=== PATIENT | male | born 1930 | race Caucasian/White ===

== ENCOUNTER 2016-10-23 05:58 | Day surgery (SDC) | payer MEDICARE ==
[2016-10-23] MEDS ORDERED: SODIUM CHLORIDE 0.9% 1,000 ML IV SCH ×2 (06:00→07:15)
[2016-10-23] MEDS ORDERED: LACTATED RINGERS 1,000 ML IV SCH (06:04)
[2016-10-23 06:53] LABS: INR 2.5 (<1.1); Prothrombin Time 23.7 sec (9.0-12.0)
[2016-10-23 06:54] LABS: Calcium 9.1 mg/dL (8.4-10.2); Potassium 4.1 mmol/L (3.5-5.1); Total Protein 6.8 g/dL (6.3-8.2)
[2016-10-23] MEDS ORDERED: PROPOFOL 10 MG/ML 20 ML VIAL IV ONE (06:55)
[2016-10-23] MEDS ORDERED: LIDOCAINE 1% INJ 10MG/ML (20 ML MDV) ONE (06:55)
[2016-10-23] MEDS ORDERED: NITROGLYCERIN SL TABS 0.4 MG TAB SUBLINGUAL ONE (07:02)
[2016-10-23 07:37] VITALS: RESP 16
[2016-10-23 08:25] VITALS: TEMP 98
[2016-10-23 08:45] VITALS: PULSE 54
[2016-10-23 08:48] VITALS: BP 156/87
--- NOTE | 2016-10-23 08:53 | CE ---
DATE OF SERVICE: 10/23/2016 PROCEDURE: Electrical cardioversion. PERFORMED BY: Dr. Lito Rangel. CLINICAL INFORMATION: Mr. He Barajas is an 85-year-old gentleman with a persistent atrial fibrillation, CAD, previous multivessel PCI. He went into atrial fibrillation a couple of weeks ago. Has been anticoagulated for a long time. Rate control was optimized. He was given amiodarone, which he had difficulty tolerating. However, he did take amiodarone up until a week ago and another dose of 400 mg yesterday. PT, INR was 2.7 yesterday. He was brought in for electrical cardioversion electively. PROCEDURE NOTE: Under the influence of ultra short-acting intravenous anesthetic agent with the attendance of the anesthesiologist Dr. Puente, two shocks were delivered to the chest with anterior and posterior patches. First was a 200 joule shock and patient remained in atrial fibrillation with controlled rate, and a second shock was 250 joules. He converted to sinus rhythm, remained hemodynamically stable and neurologically intact. This was a successful electrical cardioversion. EKG was reviewed and unremarkable. Blood pressure was 123/80. He was hypertensive when he came in. He will be discharged home without amiodarone on metoprolol 50 mg b.i.d., Coumadin 2.5 mg daily, amlodipine 5 mg daily, losartan 150 mg daily, atorvastatin 20 mg daily and I will see him in the office on 10/31/16. I discussed the details with the patient and his and daughter. He will be discharged once he is up and ambulatory.
== END 2016-10-23 09:10 | disposition home or self-care (01) ==
LOC: CATHCVL 05:58
PROVIDERS: ATTEND Internal Medicine Interventional Cardiology
DX: I48.1 Persistent atrial fibrillation (principal); I25.10 Atherosclerotic heart disease of native coronary artery without angina pectoris; Z95.5 Presence of coronary angioplasty implant and graft; I10 Essential (primary) hypertension; E78.5 Hyperlipidemia, unspecified; E78.00 Pure hypercholesterolemia, unspecified; Z86.711 Personal history of pulmonary embolism; Z79.01 Long term (current) use of anticoagulants; Z79.82 Long term (current) use of aspirin; Z79.899 Other long term (current) drug therapy; Z87.891 Personal history of nicotine dependence
CPT/HCPCS: 93005; 92960; 80053; 85610; J2001; J2704

== ENCOUNTER 2016-11-28 11:34 | Emergency (ER) | payer MEDICARE ==
--- NOTE | 2016-11-28 11:49 | ED ---
General Adult HPI - General Chief complaint: Fall Stated complaint: Fall/Head Injury Time Seen by Provider: 11/28/16 11:41 Source: patient, RN notes reviewed Mode of arrival: EMS Limitations: no limitations - History of Present Illness Initial comments: Patient is a pleasant 86-year-old male presenting to the emergency department following head injury. Incident occurred just prior to arrival. Patient was getting out of his car when he fell. Patient has a bad knee and intrusive fall to that. No loss of consciousness. Patient only has mild discomfort left forehead where he sustained a cut. No neck or back pain. No chest pain or dyspnea. No abdominal pain. No extremity injury. Patient is ambulatory. Patient does take Coumadin for history of atrial fibrillation. - Related Data Home Medications Medication Instructions Recorded Confirmed Atorvastatin [Lipitor] 20 mg PO DAILY 11/10/15 11/28/16 Losartan [Cozaar] 150 mg PO DAILY 11/10/15 11/28/16 Aspirin 81 mg PO DAILY 12/21/15 11/28/16 Metoprolol Tartrate [Lopressor] 50 mg PO BID 12/21/15 11/28/16 Warfarin [Coumadin] 2.5 mg PO HS 10/15/16 11/28/16 amLODIPine BESYLATE [Norvasc] 5 mg PO DAILY 10/23/16 11/28/16 Previous Rx's Medication Instructions Recorded Cephalexin [Keflex] 500 mg PO Q8HR #21 cap 11/28/16 Allergies Allergy/AdvReac Type Severity Reaction Status Date / Time No Known Allergies Allergy Verified 11/28/16 12:10 Review of Systems ROS Statement: Those systems with pertinent positive or pertinent negative responses have been documented in the HPI. ROS Other: All systems not noted in ROS Statement are negative. Constitutional: Denies: fever Eyes: Denies: eye pain ENT: Denies: ear pain Respiratory: Denies: cough Cardiovascular: Denies: chest pain Endocrine: Denies: fatigue Gastrointestinal: Denies: abdominal pain Genitourinary: Denies: dysuria Musculoskeletal: Denies: back pain Skin: Denies: rash Neurological: Reports: headache (Mild). Denies: weakness, numbness, paresthesias, confusion, abnormal gait Past Medical History Past Medical History: Atrial Fibrillation, Coronary Artery Disease (CAD), Hyperlipidemia, Hypertension, Pulmonary Embolus (PE) Additional Past Medical History / Comment(s): 2011 PE, diverticulosis History of Any Multi-Drug Resistant Organisms: None Reported Past Surgical History: Heart Catheterization With Stent, Hernia Repair, Tonsillectomy Additional Past Surgical History / Comment(s): colonoscopy, cardioversion Past Anesthesia/Blood Transfusion Reactions: No Reported Reaction Additional Past Anesthesia/Blood Transfusion Reaction / Comment(s): Pt states he has never received blood Date of Last Stent Placement:: 03/06/12 Past Psychological History: No Psychological Hx Reported Additional Psychological History / Comment(s): Pt states he resides with his . He is independent. He uses no assistive device. He drives a car. No home care use. Smoking Status: Former smoker Past Alcohol Use History: None Reported Additional Past Alcohol Use History / Comment(s): STARTED SMOKING AT AGE 19 QUIT AGE 28 Past Drug Use History: None Reported - Past Family History Mother Family Medical History: No Reported History Additional Family Medical History / Comment(s): Mother had pulmonary fibrosis. She at age 88yrs. Father Family Medical History: Myocardial Infarction ([place]) Additional Family Medical History / Comment(s): Father of a NE in his 60's General Exam Limitations: no limitations General appearance: alert, in no apparent distress Head exam: Present: other (Left frontal laceration) Eye exam: Present: normal appearance, PERRL, EOMI. Absent: nystagmus ENT exam: Present: normal oropharynx Neck exam: Present: normal inspection, full ROM. Absent: tenderness Respiratory exam: Present: normal lung sounds bilaterally Cardiovascular Exam: Present: regular rate, normal rhythm GI/Abdominal exam: Present: soft. Absent: tenderness Extremities exam: Present: normal inspection, full ROM. Absent: tenderness Back exam: Present: normal inspection. Absent: vertebral tenderness Neurological exam: Present: alert, CN II-XII intact. Absent: motor sensory deficit Expanded Cranial nerves: EOM's Intact: Normal Motor strength exam: RUE: 5, LUE: 5, RLE: 5, LLE: 5 Eye Response: (4) open spontaneously Motor Response: (6) obeys commands Verbal Response: (5) oriented Psychiatric exam: Present: normal affect, normal mood Skin exam: Absent: rash Course Vital Signs 11/28/16 11:41 Temperature 96.9 F L Pulse Rate 63 Respiratory 16 Rate Blood Pressure 171/94 O2 Sat by Pulse 96 Oximetry Procedures - Laceration Laceration #1 Consent Obtained: verbal consent Time Out Performed: Yes Indication: laceration Site: face Size (cm): 9 Description: stellate Depth: simple, single layer Anesthetic Used: lidocaine 1% Anesthesia Technique: local infiltration Pre-repair: wound explored, irrigated extensively, foreign body removed ( Minimal debris) Type of Sutures: nylon Size of Sutures: 4-0 Number of Sutures: 12 Technique: simple, interrupted Patient Tolerated Procedure: well, no complications Medical Decision Making - Medical Decision Making Son requested knee x-ray however patient refuses this multiple times. states no discomfort at this time. No tenderness on exam. - Radiology Data Radiology results: image reviewed (Computed tomography scan the brain shows no acute process. Possible debris in the wound.) Disposition Clinical Impression: Fall, Forehead laceration, Head injury Disposition: HOME SELF-CARE Condition: Stable Instructions: Fall Prevention for Older Adults (ED), Head Injury (ED), Facial Laceration (ED) Additional Instructions: Twice daily wash wound with soap and water and apply antibiotic ointment, keep bandage.Please return to the emergency room in 7-8 days to have sutures removed. Please watch for any signs of infection which may include increased pain, swelling, redness, fever or chills. Please return to emergency room for any signs of infection do occur. Please use clean soap and water over the area to prevent scabbing over your stitches. Please leave wound covered for the first 24-48 hours and then leave wound open to air. Please return to the emergency room for any other concerns. Return for confusion, weakness, visual changes, redness or swelling, worsening symptoms or other concerns. Prescriptions: Cephalexin [Keflex] 500 mg PO Q8HR #21 cap Referrals: Titi Nix III, MD [Primary Care Provider] - 1-2 days
--- NOTE | 2016-11-28 12:13 | CT ---
EXAMINATION TYPE: CT brain wo con DATE OF EXAM: 11/28/2016 12:07 PM COMPARISON: NONE INDICATION: fall DLP: 1076.7 mGycm, Automated exposure control for dose reduction was used. CONTRAST: None CT of the brain is performed utilizing 3 mm thick sections through the posterior fossa and 3 mm thick sections through the remaining calvarium. Study is performed within 24 hours of arrival to the hosp [facility]. No abnormal hyperdensity is present to suggest an acute intracranial hemorrhage. No mass lesion is evident. No acute infarcts are evident. Mild periventricular white matter hypodensity is present may be some m ild microvascular ischemic change. Ventricles and sulci are prominent for the patient age. There is prominence of the extra-axial space s. Mild left subdural hygroma may be present. Paranasal sinuses and mastoid air cells within the [id number] are clear. There is soft tissue swelling over the left frontal region. There are couple of superficial hyperdens ities present could be tiny foreign bodies at the skin surface. Laceration is evident on the bone win dows. IMPRESSIONS: 1. Atrophy with periventricular white matter ischemic changes. 2. No acute intracranial process. 3. Soft tissue swelling left frontal region. Punctate foreign bodies may be at the skin surface.
[2016-11-28 13:43] VITALS: BP 144/79; PULSE 64; RESP 18; TEMP 96.8
== END 2016-11-28 13:54 | disposition home or self-care (01) ==
LOC: EC 11:34
DX: S01.81XA Laceration without foreign body of other part of head, initial encounter (principal); W01.10XA Fall on same level from slipping, tripping and stumbling with subsequent striking against unspecified object, initial encounter; Y92.009 Unspecified place in unspecified non-institutional (private) residence as the place of occurrence of the external cause; I48.91 Unspecified atrial fibrillation; I25.10 Atherosclerotic heart disease of native coronary artery without angina pectoris; E78.5 Hyperlipidemia, unspecified; I10 Essential (primary) hypertension; Z86.711 Personal history of pulmonary embolism; Z87.891 Personal history of nicotine dependence; Z79.82 Long term (current) use of aspirin; Z79.01 Long term (current) use of anticoagulants; Z79.899 Other long term (current) drug therapy
CPT/HCPCS: 12015; 70450; 99284

== ENCOUNTER 2019-07-23 10:53 | Inpatient (IN) | payer MEDICARE ==
--- NOTE | 2019-07-23 11:31 | ED ---
General Adult HPI - General Chief complaint: Weakness Stated complaint: Fell a week ago/leg pain Time Seen by Provider: 07/23/19 11:05 Source: patient, RN notes reviewed, old records reviewed Mode of arrival: wheelchair Limitations: physical limitation - History of Present Illness Initial comments: 88-year-old male presented for evaluation of bilateral lower extremity weakness status post fall. Patient fell one week ago. He was evaluated at urgent care and had x-rays at that time which according to the patient were negative for any acute bony abnormality. He's had progressive weakness and difficulty standing since the time of the fall. Denies numbness or tingling in the legs. He does have some lumbosacral pain although this is improving. Denies fever or chills. Denies any urinary retention or urinary incontinence, no bowel incontinence. Denies abdominal pain chest pain or cough. Patient is currently on Coumadin with history of DVT PE. - Related Data Home Medications Medication Instructions Recorded Confirmed Atorvastatin [Lipitor] 20 mg PO DAILY 11/10/15 07/23/19 Metoprolol Tartrate [Lopressor] 50 mg PO BID 12/21/15 07/23/19 ALPRAZolam [Xanax] 0.25 - 0.5 mg PO DAILY PRN 07/23/19 07/23/19 Amiodarone [Cordarone] 200 mg PO DAILY 07/23/19 07/23/19 Furosemide [Lasix] 20 mg PO DAILY 07/23/19 07/23/19 Hydrochlorothiazide [Hydrodiuril] 25 mg PO DAILY 07/23/19 07/23/19 Potassium Chloride ER [K-Dur 20] 20 meq PO DAILY 07/23/19 07/23/19 Valsartan [Diovan] 160 mg PO BID 07/23/19 07/23/19 Warfarin Sodium [Jantoven] 1.25 mg PO HS 07/23/19 07/23/19 cloNIDine HCL 0.3 mg PO BID 07/23/19 07/23/19 Allergies Allergy/AdvReac Type Severity Reaction Status Date / Time No Known Allergies Allergy Verified 07/23/19 11:54 Review of Systems ROS Statement: Those systems with pertinent positive or pertinent negative responses have been documented in the HPI. ROS Other: All systems not noted in ROS Statement are negative. Past Medical History Past Medical History: Atrial Fibrillation, Coronary Artery Disease (CAD), Hyperlipidemia, Hypertension, Pulmonary Embolus (PE) Additional Past Medical History / Comment(s): 2011 PE, diverticulosis History of Any Multi-Drug Resistant Organisms: None Reported Past Surgical History: Heart Catheterization With Stent, Hernia Repair, Tonsillectomy Additional Past Surgical History / Comment(s): colonoscopy, cardioversion Past Anesthesia/Blood Transfusion Reactions: No Reported Reaction Additional Past Anesthesia/Blood Transfusion Reaction / Comment(s): Pt states he has never received blood Date of Last Stent Placement:: 03/06/12 Past Psychological History: No Psychological Hx Reported Smoking Status: Former smoker Past Alcohol Use History: None Reported Past Drug Use History: None Reported - Past Family History Mother Family Medical History: No Reported History Additional Family Medical History / Comment(s): Mother had pulmonary fibrosis. She at age 88yrs. Father Family Medical History: Myocardial Infarction ([place]) Additional Family Medical History / Comment(s): Father of a MS in his 60's General Exam Limitations: physical limitation General appearance: alert, in no apparent distress Head exam: Present: atraumatic, normocephalic Eye exam: Present: normal appearance, PERRL ENT exam: Present: normal exam Neck exam: Present: normal inspection. Absent: tenderness, meningismus Respiratory exam: Present: normal lung sounds bilaterally. Absent: respiratory distress, wheezes Cardiovascular Exam: Present: regular rate, normal rhythm GI/Abdominal exam: Present: soft. Absent: distended, tenderness, guarding, rebound Extremities exam: Present: normal inspection. Absent: pedal edema, joint swell ing, calf tenderness Back exam: Present: normal inspection, full ROM. Absent: muscle spasm, paraspinal tenderness, vertebral tenderness Neurological exam: Present: alert, oriented X3, CN II-XII intact, other (5 out of 5 strength in bilateral lower extremities, no sensory deficit, patient is not hyperreflexic) Skin exam: Present: warm, dry, intact. Absent: cyanosis, diaphoretic Course Vital Signs 07/23/19 11:01 Temperature 97.7 F Pulse Rate 58 L Respiratory 19 Rate Blood Pressure 145/77 O2 Sat by Pulse 96 Oximetry Medical Decision Making - Medical Decision Making 88-year-old male presented for evaluation of low back pain status post fall and weakness in his legs. Patient is on Coumadin, is concern for epidural abscess versus fracture dislocation, workup is initiated emergency department including laboratory testing and CT. Patient has normal white blood cell count, stable hemoglobin which is improved from previous at 12.9 from 11.1. His INR is subtherapeutic at 1.6. He has normal electrolytes. CT is performed which shows a L3, L4, L5 compression deformities.. Case is discussed with orthopedics, physician producer assistant Silvia sherman. Orthopedics does recommend admission to internal medicine with orthopedics on consult. Patient will be admitted for orthopedic evaluation and physical therapy with gait training. - Lab Data Result diagrams: 07/23/19 11:20 07/23/19 11:20 Lab Results 07/23/19 07/23/19 07/23/19 Range/Units 11:20 11:20 11:20 WBC 6.4 (3.8-10.6) k/uL RBC 4.15 L (4.30-5.90) m/uL Hgb 12.9 L (13.0-17.5) gm/dL Hct 38.4 L (39.0-53.0) % MCV 92.5 (80.0-100.0) fL MCH 31.1 (25.0-35.0) pg MCHC 33.6 (31.0-37.0) g/dL RDW 13.2 (11.5-15.5) % Plt Count 227 (150-450) k/uL Neutrophils % 76 % Lymphocytes % 13 % Monocytes % 6 % Eosinophils % 3 % Basophils % 1 % Neutrophils # 4.8 (1.3-7.7) k/uL Lymphocytes # 0.9 L (1.0-4.8) k/uL Monocytes # 0.4 (0-1.0) k/uL Eosinophils # 0.2 (0-0.7) k/uL Basophils # 0.0 (0-0.2) k/uL PT 15.7 H (9.0-12.0) sec INR 1.6 H (<1.2) APTT 27.7 (22.0-30.0) sec Sodium 140 (137-145) mmol/L Potassium 3.7 (3.5-5.1) mmol/L Chloride 104 (98-107) mmol/L Carbon Dioxide 29 (22-30) mmol/L Anion Gap 7 mmol/L BUN 28 H (9-20) mg/dL Creatinine 1.20 (0.66-1.25) mg/dL Est GFR (CKD-EPI)AfAm 63 (>60 ml/min/1.73 sqM) Est GFR (CKD-EPI)NonAf 55 (>60 ml/min/1.73 sqM) Glucose 102 H (74-99) mg/dL Calcium 9.2 (8.4-10.2) mg/dL Total Bilirubin 0.6 (0.2-1.3) mg/dL AST 28 (17-59) U/L ALT 26 (21-72) U/L Alkaline Phosphatase 65 (38-126) U/L Total Protein 6.4 (6.3-8.2) g/dL Albumin 3.6 (3.5-5.0) g/dL Urine Color Urine Appearance (Clear) Urine pH (5.0-8.0) Ur Specific [place] (1.001-1.035) Urine Protein (Negative) Urine Glucose (UA) (Negative) Urine Ketones (Negative) Urine Blood (Negative) Urine Nitrite (Negative) Urine Bilirubin (Negative) Urine Urobilinogen (<2.0) mg/dL Ur Leukocyte Esterase (Negative) Urine RBC (0-5) /hpf Urine WBC (0-5) /hpf Ur Squamous Epith Cells (0-4) /hpf Hyaline Casts (0-2) /lpf Urine Mucus (None) /hpf 07/23/19 Range/Units 12:10 WBC (3.8-10.6) k/uL RBC (4.30-5.90) m/uL Hgb (13.0-17.5) gm/dL Hct (39.0-53.0) % MCV (80.0-100.0) fL MCH (25.0-35.0) pg MCHC (31.0-37.0) g/dL RDW (11.5-15.5) % Plt Count (150-450) k/uL Neutrophils % % Lymphocytes % % Monocytes % % Eosinophils % % Basophils % % Neutrophils # (1.3-7.7) k/uL Lymphocytes # (1.0-4.8) k/uL Monocytes # (0-1.0) k/uL Eosinophils # (0-0.7) k/uL Basophils # (0-0.2) k/uL PT (9.0-12.0) sec INR (<1.2) APTT (22.0-30.0) sec Sodium (137-145) mmol/L Potassium (3.5-5.1) mmol/L Chloride (98-107) mmol/L Carbon Dioxide (22-30) mmol/L Anion Gap mmol/L BUN (9-20) mg/dL Creatinine (0.66-1.25) mg/dL Est GFR (CKD-EPI)AfAm (>60 ml/min/1.73 sqM) Est GFR (CKD-EPI)NonAf (>60 ml/min/1.73 sqM) Glucose (74-99) mg/dL Calcium (8.4-10.2) mg/dL Total Bilirubin (0.2-1.3) mg/dL AST (17-59) U/L ALT (21-72) U/L Alkaline Phosphatase (38-126) U/L Total Protein (6.3-8.2) g/dL Albumin (3.5-5.0) g/dL Urine Color Yellow Urine Appearance Clear (Clear) Urine pH 5.5 (5.0-8.0) Ur Specific [place] 1.013 (1.001-1.035) Urine Protein Negative (Negative) Urine Glucose (UA) Negative (Negative) Urine Ketones Negative (Negative) Urine Blood Negative (Negative) Urine Nitrite Negative (Negative) Urine Bilirubin Negative (Negative) Urine Urobilinogen <2.0 (<2.0) mg/dL Ur Leukocyte Esterase Trace H (Negative) Urine RBC <1 (0-5) /hpf Urine WBC 1 (0-5) /hpf Ur Squamous Epith Cells <1 (0-4) /hpf Hyaline Casts 25 H (0-2) /lpf Urine Mucus Rare H (None) /hpf Disposition Clinical Impression: Lumbar compression fracture, Gait instability Disposition: ADMITTED IP TO THIS [facility] Condition: Stable Is patient prescribed a controlled substance at d/c from ED?: No Referrals: Titi Nix III, MD [Primary Care Provider] - 1-2 days Decision to Admit Reason: Admit from EC Decision Date: 07/23/19 Decision Time: 13:36
[2019-07-23 11:38] LABS: Basophils % (A) 1 %; Eosinophils # (A) 0.2 k/uL (0-0.7); Eosinophils % (A) 3 %; HCT 38.4 % (39.0-53.0); HGB 12.9 gm/dL (13.0-17.5); Lymphocytes # (A) 0.9 k/uL (1.0-4.8); Lymphocytes % (A) 13 %; MCH 31.1 pg (25.0-35.0); MCHC 33.6 g/dL (31.0-37.0); MCV 92.5 fL (80.0-100.0); Mean Platelet Volume 7.7; Monocytes # (A) 0.4 k/uL (0-1.0); Monocytes % (A) 6 %; Neutrophils # (A) 4.8 k/uL (1.3-7.7); Neutrophils % (A) 76 %; Platelet Count 227 k/uL (150-450); RBC 4.15 m/uL (4.30-5.90); RDW 13.2 % (11.5-15.5); WBC 6.4 k/uL (3.8-10.6)
[2019-07-23 11:49] LABS: Albumin 3.6 g/dL (3.5-5.0); Calcium 9.2 mg/dL (8.4-10.2); INR 1.6 (<1.2); Partial Thromboplastin Time 27.7 sec (22.0-30.0); Potassium 3.7 mmol/L (3.5-5.1); Prothrombin Time 15.7 sec (9.0-12.0); Total Bilirubin 0.6 mg/dL (0.2-1.3); Total Protein 6.4 g/dL (6.3-8.2)
--- NOTE | 2019-07-23 12:47 | CT ---
EXAMINATION TYPE: CT abdomen pelvis w con DATE OF EXAM: 07/23/2019 COMPARISON: None HISTORY: Fall 4-5 days ago with low back pain and leg weakness CT DLP: 1651 mGycm Automated exposure control for dose reduction was used. TECHNIQUE: Helical acquisition of images was performed from the lung bases through the pelvis. Recon structed images were obtained of the lumbar spine. CONTRAST: Performed without Oral Contrast and with IV Contrast, patient injected with 100 mL of Isovue 300. FINDINGS: LUNG BASES: Peripheral reticular opacities relate to mild fibrosis with bibasilar subsegmental atelec tasis. Very small hiatal hernia. LIVER/GB: Hepatic parenchyma is diffusely hypoattenuated in comparison to that of the spleen, most co mmonly seen in hepatic steatosis. This finding limits evaluation for hepatic masses. No gross evidenc e of hepatic mass is seen. No intrahepatic biliary ductal dilatation. No cholelithiasis PANCREAS: No significant abnormality is seen. SPLEEN: No significant abnormality is seen. ADRENALS: No significant abnormality is seen. KIDNEYS: There is some ostial narrowing of the renal arteries secondary to calcific atherosclerosis. FREE AIR: No free air is visualized. ADENOPATHY: No greater than 1 cm short axis lymph node in the abdomen or pelvis. REPRODUCTIVE ORGANS: Prostate gland is enlarged and heterogenous measuring 6.8 cm in transverse dimen sonja with impression on the urinary bladder. OSSEOUS STRUCTURES: There are age indeterminant compression deformities of L3, L4, and L5. Compressi on deformity of L3 vertebral body height loss of approximately 40%. L2 has vertebral body height loss of approximately 50% and approximately 10%. Multilevel disc desiccation is seen with at least disc b ulging disc herniation that L3-L4, L4-5 and L5-S1. There is severe spinal canal stenosis at L3-L4, an d moderate spinal canal stenosis at L4-L5, and moderate spinal canal stenosis at L2-L3. Right pars in terarticularis defect at L5-S1 with very minimal (1 mm) anterolisthesis of L5 on S1. Remainder the ve rtebral body heights are aligned. No retropulsion. BOWEL: Numerous sigmoid diverticula are present without pericolonic fat stranding. Diverticula are a lso seen throughout the remainder the colon without pericolonic fat stranding. Moderate degree coloni c fecal stasis. No dilated large or small bowel. IMPRESSION: 1. AGE-INDETERMINATE COMPRESSION DEFORMITIES OF L3, L4, AND L5. NO PRIORS ARE AVAILABLE FOR COMPARISO N TO DETERMINE CHRONICITY. MRI COULD BE PERFORMED TO EVALUATE FOR BONE MARROW EDEMA AND DETERMINE ACU ITY. ADDITIONALLY IF THERE IS CONCERN FOR EPIDURAL HEMATOMA LISTED AND THE INDICATIONS MRI WOULD B E BETTER SUITED TO EVALUATE FOR ACUTE EPIDURAL HEMATOMA. 2. 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
[2019-07-23 12:53] LABS: Appearance,Urine Clear (Clear); Bilirubin,Urine Negative (Negative); Blood,Urine Negative (Negative); Color,Urine Yellow; Glucose,Urine (UA) Negative (Negative); Hyaline Casts,Urine 25 /lpf (0-2); Ketones,Urine Negative (Negative); Leukocyte Esterase,Urine Trace (Negative); Mucus,Urine Rare /hpf; Nitrite,Urine Negative (Negative); PH, Urine 5.5 (5.0-8.0); Protein,Urine Negative (Negative); RBC,Urine <1 /hpf (0-5); Specific Gravity,Urine 1.013 (1.001-1.035); Squamous Epithelial Cell,Urine <1 /hpf (0-4); Urobilinogen,Urine <2.0 mg/dL (<2.0); WBC,Urine 1 /hpf (0-5)
[2019-07-23] MEDS ORDERED: NALOXONE 0.4 MG/ML 1 ML VIAL IV PRN (13:37)
[2019-07-23] MEDS ORDERED: MORPHINE SULFATE 4 MG/ML SYRINGE IV PRN (13:37)
[2019-07-23] MEDS: VALSARTAN 160 MG TAB PO SCH (21:35)
[2019-07-23] MEDS: WARFARIN 1.25 MG TAB PO SCH (21:35)
[2019-07-23] MEDS: cloNIDine HCL 0.1 MG TAB PO SCH (21:35)
[2019-07-23] MEDS: METOPROLOL TARTRATE 50 MG TAB PO SCH (21:35)
[2019-07-23] MEDS: ACETAMINOPHEN TAB 325 MG TAB PO PRN (21:37)
[2019-07-23] MEDS: ALPRAZolam 0.5 MG TAB PO PRN (21:43)
[2019-07-24] MEDS: ATORVASTATIN 20 MG TAB PO SCH (08:28)
[2019-07-24] MEDS: METOPROLOL TARTRATE 50 MG TAB PO SCH ×2 (08:28→21:27)
[2019-07-24] MEDS: FUROSEMIDE 20 MG TAB PO SCH (08:28)
[2019-07-24] MEDS: HYDROCHLOROTHIAZIDE 25 MG TAB PO SCH (08:28)
[2019-07-24] MEDS: cloNIDine HCL 0.1 MG TAB PO SCH ×2 (08:28→21:27)
[2019-07-24] MEDS: POTASSIUM CHLORIDE ER 20 MEQ TAB.ER PO SCH (08:28)
[2019-07-24] MEDS: AMIODARONE 200 MG TAB PO SCH (08:28)
[2019-07-24] MEDS: VALSARTAN 160 MG TAB PO SCH ×2 (08:29→21:27)
[2019-07-24 08:32] LABS: INR 1.9 (<1.2); Prothrombin Time 18.5 sec (9.0-12.0)
[2019-07-24] MEDS: ACETAMINOPHEN TAB 325 MG TAB PO PRN (08:33)
--- NOTE | 2019-07-24 13:44 | P.HPOR ---
History of Present Illness H&P Date: 07/24/19 Chief Complaint: Low back pain, bilateral lower extremity pain, difficulty a mbulating Patient is very pleasant 88-year-old gentleman who started having pain over the past week and a half after sustaining a fall on Thanksgiving 10 days ago. He said he had occasional back pain before that but denies any specific injury or trauma. He says over the past few days he has been having worsening trouble at his bilateral lower extremities and significant difficulty with his ambulation and walking. He says his thighs and his cast felt quite sore especially when he would try to stand and walk. He denies any changes in bowel bladder function. Denies any fevers chills. Denies any loss of consciousness. Denies specific weakness when he is laying down or seated. Review of Systems As stated in HPI. Denies any chest pain shortness breath. Denies any changes in bowel bladder function. Past Medical History Past Medical History: Atrial Fibrillation, Coronary Artery Disease (CAD), Hyperlipidemia, Hypertension, Pulmonary Embolus (PE) Additional Past Medical History / Comment(s): 2011 PE, diverticulosis History of Any Multi-Drug Resistant Organisms: None Reported Past Surgical History: Heart Catheterization With Stent, Hernia Repair, Tonsillectomy Additional Past Surgical History / Comment(s): colonoscopy, cardioversion Past Anesthesia/Blood Transfusion Reactions: No Reported Reaction Additional Past Anesthesia/Blood Transfusion Reaction / Comment(s): Pt states he has never received blood Date of Last Stent Placement:: 03/06/12 Past Psychological History: No Psychological Hx Reported Additional Psychological History / Comment(s): Pt states he resides with his . He is independent. He uses walker at home prn. He drives a car. No home care use. Smoking Status: Former smoker Past Alcohol Use History: None Reported Additional Past Alcohol Use History / Comment(s): STARTED SMOKING AT AGE 19 QUIT AGE 28 Past Drug Use History: None Reported - Past Family History Mother Family Medical History: No Reported History Additional Family Medical History / Comment(s): Mother had pulmonary fibrosis. She at age 88yrs. Father Family Medical History: Myocardial Infarction (CT) Additional Family Medical History / Comment(s): Father of a CT in his 60's Medications and Allergies Home Medications Medication Instructions Recorded Confirmed Type Atorvastatin [Lipitor] 20 mg PO DAILY 11/10/15 07/23/19 History Metoprolol Tartrate [Lopressor] 50 mg PO BID 12/21/15 07/23/19 History ALPRAZolam [Xanax] 0.25 - 0.5 mg PO DAILY PRN 07/23/19 07/23/19 History Amiodarone [Cordarone] 200 mg PO DAILY 07/23/19 07/23/19 History Furosemide [Lasix] 20 mg PO DAILY 07/23/19 07/23/19 History Hydrochlorothiazide [Hydrodiuril] 25 mg PO DAILY 07/23/19 07/23/19 History Potassium Chloride ER [K-Dur 20] 20 meq PO DAILY 07/23/19 07/23/19 History Valsartan [Diovan] 160 mg PO BID 07/23/19 07/23/19 History Warfarin Sodium [Jantoven] 1.25 mg PO HS 07/23/19 07/23/19 History cloNIDine HCL 0.3 mg PO BID 07/23/19 07/23/19 History Allergies Allergy/AdvReac Type Severity Reaction Status Date / Time No Known Allergies Allergy Verified 07/23/19 11:54 Physical Examination Osteopathic Statement: *. No significant issues noted on an osteopathic structural exam other than those noted in the History and Physical/Consult. - L Spine: dermatomal strength & reflexes bilateral Strength: hip flexion: 5/5 (Examined his back reveals no specific skin changes no rashes or ulcerations. He's nontender over the midline. There is some tenderness over his lumbosacral junction and SI joints bilaterally. He is able to walk with a walker in his room and to the bathroom. He is somewhat shaky on his feet but he is able stand on his toes and on his heels. He has sustained dorsal plantar flexion and EHL intact in bilateral lower extremity. He is able to dorsiflex up off the bed independently. His no pain with interelectrode patient is hips. His thighs and calves soft nontender. His sensory is intact. There is no saddle paresthesias.) Results - Labs Labs: Abnormal Lab Results - Last 24 Hours (Table) 07/24/19 Range/Units 07:48 PT 18.5 H (9.0-12.0) sec INR 1.9 H (<1.2) H & H 07/23/19 Range/Units 11:20 Hgb 12.9 L (13.0-17.5) gm/dL Hct 38.4 L (39.0-53.0) % Coagulation 07/23/19 07/24/19 Range/Units 11:20 07:48 INR 1.6 H 1.9 H (<1.2) Result Diagrams: 07/23/19 11:20 07/23/19 11:20 - Diagnostic results CT Scan - lumbar: report reviewed, image reviewed (The computed tomography scan of his abdomen pelvis reviewed in terms of his lumbar spine. It shows evidence of compression deformity at L3 and small endplate formed L4 and L5. There is possibly 50% height loss at L3. It is difficult to determine the age of the fracture though the does seem to be some healing around the fracture site itself. There is significant spinal stenosis L2-3 and L3 4 and L4 5. It is difficult to fully evaluate on the computed tomography scan the extent of the stenosis but does appear to be quite severe.) Assessment and Plan Assessment: Low back pain with limited ability to ambulate Status post fall approximately 10 days ago with worsening low back pain and l ower extremity symptoms Neurogenic claudication bilateral lower extremity is Spinal stenosis L2-3 L3 4 L4 5 L3-L4 and L5 compression fractures of undetermined age Degenerative spondylosis lumbar spine Plan: Low back pain with limited ability to ambulate Status post fall approximately 10 days ago with worsening low back pain and lower extremity symptoms Neurogenic claudication bilateral lower extremity is Spinal stenosis L2-3 L3 4 L4 5 L3-L4 and L5 compression fractures of undetermined age Degenerative spondylosis lumbar spine The patient has a number of compression fractures at his lumbar spine of undetermined age. He did have a fall possibly 10 days ago on things giving and may have sustained the fracture at that point. As such we will order an LSO to help give him some stability as he mobilizes. It is difficult to fully determine the age and an MRI would help determine age of the fracture as well to see if there is still acute healing to be done. The patient has some evidence of neurogenic claudication and spinal stenosis. The fall likely exacerbated some of his degenerative changes at his lumbar spine and gave him significant decrease ability to ambulate and mobilize. An MRI would delineate the level of the stenosis more severe freely as well. We will go ahead and order the MRI for him. He may have some benefit of his degenerative exacerbation with a short course of steroid and we will order some steroid for him. I think it is okay for him to try to mobilize with physical therapy utilizing a walker. He may need home physical therapy after discharge as well. I discussed his issues with him and his family at length at bedside in terms of using a brace a walker and obtaining MRI for further evaluation as well as medication with steroids to try to alleviate some of the exacerbated symptoms. We will have more information once the MRI is completed. Time with Patient: Greater than 30
[2019-07-24] MEDS ORDERED: HYDROcodone/APAP 5-325MG 1 EACH TAB PO PRN (16:53)
[2019-07-24] MEDS: WARFARIN 1.25 MG TAB PO SCH (17:40)
[2019-07-24] MEDS: INSULIN ASPART (NovoLOG) 100 UNIT/ML VIAL SQ SCH ×2 (17:40→21:27)
[2019-07-24 18:13] LABS: Appearance,Urine Clear (Clear); Bilirubin,Urine Negative (Negative); Blood,Urine Negative (Negative); Color,Urine Yellow; Glucose,Urine (UA) Negative (Negative); Ketones,Urine Negative (Negative); Leukocyte Esterase,Urine Negative (Negative); Nitrite,Urine Negative (Negative); PH, Urine 5.5 (5.0-8.0); Protein,Urine Negative (Negative); Specific Gravity,Urine 1.022 (1.001-1.035); Urobilinogen,Urine <2.0 mg/dL (<2.0)
--- NOTE | 2019-07-24 18:45 | XR ---
EXAMINATION TYPE: XR chest 1V portable DATE OF EXAM: 07/24/2019 COMPARISON: Chest x-ray 11/12/2015 HISTORY: CHF TECHNIQUE: Single frontal view of the chest is obtained. FINDINGS: Cardiomediastinal silhouette is within normal limits. Atherosclerotic calcifications of the aorta. No pulmonary vascular congestion. No sizable pleural effusion or visible pneumothorax. Osseous structur es are grossly intact. IMPRESSION: No acute process.
--- NOTE | 2019-07-24 20:44 | HP ---
HISTORY AND PHYSICAL DATE OF SERVICE: 07/24/2019 CHIEF COMPLAINT: Back pain and lower extremity pain and weakness. HISTORY OF PRESENT ILLNESS: This 88-year-old gentleman with a past medical history of multiple medical problems including history of atrial fibrillation, CAD, hypertension, history of pulmonary embolism, history of coronary artery disease/stent being followed by Dr. Nix in the outpatient setting was complaining of severe back pain. The patient had sustained a fall on Thanksgiving about a week ago. The patient complaining of back pain. Patient also complains of numbness and weakness, numbness also felt in the anterior part of the anterior part of the thighs and the patient came to [facility] and admitted to the hospital for further evaluation and treatment. A CT scan showed evidence of lumbar compression fracture L3, 4, 5, and the patient was also seen by Dr. Milligan. Some type of neurogenic claudications spinal canal was also suspected. MRA was recommended by Dr. Milligan. Short course of steroids also recommended. The patient being closely monitored at this time. There is no history of fever, rigors or chills. No history of headache, loss of consciousness, seizures. The family also reports some gait instability and acute disequilibrium prior to the current onset of current disease process. PAST MEDICAL HISTORY: History of atrial ablation, CAD, hypertension, hyperlipidemia, history of pulmonary embolism, history of PE, CAD/stent. MEDICATIONS: Home medications are: 1. Clonidine 0.3 b.i.d. 2. Coumadin 1.25 mg q.h.s. 3. Diovan 160 mg p.o. b.i.d. 4. Potassium chloride 20 mg p.o. daily. 5. Lopressor 50 mg p.o. daily. 6. HydroDIURIL 25 mg b.i.d. 7. Lasix 20 mg daily. 8. Lipitor 20 mg p.o. daily. 9. Cordarone 200 mg p.o. daily. 10.Xanax 0.25 mg daily p.r.n. ALLERGIES: None. FAMILY HISTORY: No history of heart disease or strokes in the family. Pulmonary fibrosis in mother. SOCIAL HISTORY: Previous history of smoking. No history of current smoking or alcohol intake. REVIEW OF SYSTEMS: ENT: Diminished vision. Diminished hearing. CARDIOVASCULAR SYSTEM: No angina, otherwise, as mentioned earlier. RESPIRATORY: As mentioned earlier. GI no nausea or vomiting. as mentioned earlier. NERVOUS SYSTEM: As mentioned earlier. ALLERGY/IMMUNOLOGY: No asthma or hayfever. MUSCULOSKELETAL as mentioned earlier. HEMATOLOGY/ONCOLOGY: No history of anemia./ ENDOCRINE: No history of diabetes or hypothyroidism. CONSTITUTIONAL: As mentioned earlier. DERMATOLOGY: Negative. RHEUMATOLOGY: Negative. PSYCHIATRY: As mentioned earlier. PHYSICAL EXAMINATION: The patient is alert and oriented times three. Pulse 59, blood pressure 149/85, respiration 14, temperature 97.7, pulse ox 94% on room air. HEENT: Conjunctivae normal. NECK: No jugular venous distention. No carotid bruit. No lymph node enlargement. CARDIOVASCULAR: S1, S2 muffled. No S3, no S4. RESPIRATORY: Breath sounds diminished in the bases. A few scattered rhonchi and crackles. ABDOMEN: Soft, nontender. No mass palpable. LEGS: No edema. No swelling. NERVOUS SYSTEM: Higher functions as mentioned earlier. Upper limbs are normal. Lower limbs are slightly weak. No sensory abnormality noted. Some gait instability also noted. LYMPHATICS: No lymph nodes palpable in the neck, axillae or groin. JOINTS: No active deforming arthropathy. SKIN: No ulcer, rash or bleeding. LAB STUDIES: WBC 6.9, hemoglobin 12.9. INR is 1.6, glucose 102. UA noted. ASSESSMENT: 1. Intractable back pain with failure of outpatient treatment with multiple lumbar compression fractures, L3-4 5 with gait instability. 2. Possible spinal stenosis as well as neurogenic claudication. 3. History atrial fibrillation. 4. Coumadin monitoring. 5. Coronary artery disease. 6. Hypertension. 7. Hyperlipidemia. 8. History of pulmonary embolus. 9. History of diverticulosis. 10.History of coronary artery disease/ stent. 11.Remote history of nicotine dependence. 12.FULL CODE. RECOMMENDATIONS AND DISCUSSION: In this 88-year-old gentleman who presented with multiple complex medical issues, we will monitor the patient closely, continue the current medications, management and symptomatic treatment. We will initiate home medications. IV steroids. Monitor blood sugars closely. Otherwise, pain medications. PT/OT evaluation. MRI of the back as recommended by Dr. Milligan. Prognosis guarded because of multiple complex medical issues. PT/OT evaluation. I would also recommend possible ECF rehab also because of the longstanding history of equilibrium which is exacerbated by current illness, but however we will continue to monitor and neurology consultation also may be sought subsequently and further recommendations to follow. A copy of this dictation being forwarded to Dr. Nix who is the primary physician. MMOLIVER / IJN: [id number] / MTDBee
[2019-07-24 21:06] LABS: Glucose,Whole Blood 137 mg/dL (75-99)
[2019-07-24] MEDS: methylPREDNISolone SOD SUCCI 125 MG/2 ML VIAL IV SCH (21:27)
[2019-07-24] MEDS: ALPRAZolam 0.5 MG TAB PO PRN (21:31)
[2019-07-25 07:03] LABS: Glucose,Whole Blood 181 mg/dL (75-99)
[2019-07-25 08:01] LABS: Basophils % (A) 0 %; Eosinophils % (A) 0 %; HCT 42.6 % (39.0-53.0); HGB 14.1 gm/dL (13.0-17.5); Lymphocytes # (A) 0.6 k/uL (1.0-4.8); Lymphocytes % (A) 12 %; MCH 30.7 pg (25.0-35.0); MCHC 33.1 g/dL (31.0-37.0); MCV 92.7 fL (80.0-100.0); Mean Platelet Volume 7.5; Monocytes # (A) 0.1 k/uL (0-1.0); Monocytes % (A) 2 %; Neutrophils # (A) 3.8 k/uL (1.3-7.7); Neutrophils % (A) 85 %; Platelet Count 272 k/uL (150-450); RDW 13.2 % (11.5-15.5); WBC 4.5 k/uL (3.8-10.6)
[2019-07-25 08:02] LABS: INR 1.7 (<1.2); Prothrombin Time 17.1 sec (9.0-12.0)
[2019-07-25 08:14] LABS: Calcium 9.5 mg/dL (8.4-10.2); Potassium 4.5 mmol/L (3.5-5.1)
[2019-07-25] MEDS: METOPROLOL TARTRATE 50 MG TAB PO SCH ×2 (08:23→20:25)
[2019-07-25] MEDS: PANTOPRAZOLE 40 MG TABLET PO SCH (08:23)
[2019-07-25] MEDS: AMIODARONE 200 MG TAB PO SCH (08:23)
[2019-07-25] MEDS: FUROSEMIDE 20 MG TAB PO SCH (08:23)
[2019-07-25] MEDS: POTASSIUM CHLORIDE ER 20 MEQ TAB.ER PO SCH (08:23)
[2019-07-25] MEDS: HYDROCHLOROTHIAZIDE 25 MG TAB PO SCH (08:23)
[2019-07-25] MEDS: INSULIN ASPART (NovoLOG) 100 UNIT/ML VIAL SQ SCH ×4 (08:24→20:25)
[2019-07-25] MEDS: cloNIDine HCL 0.1 MG TAB PO SCH ×2 (08:24→20:24)
[2019-07-25] MEDS: ATORVASTATIN 20 MG TAB PO SCH (08:24)
[2019-07-25] MEDS: methylPREDNISolone SOD SUCCI 125 MG/2 ML VIAL IV SCH ×2 (08:24→20:25)
[2019-07-25] MEDS: VALSARTAN 160 MG TAB PO SCH ×2 (08:25→20:25)
--- NOTE | 2019-07-25 09:36 | P.PN ---
Subjective Progress Note Date: 07/25/19 This is an 88-year-old male who is admitted for low back pain after a fall. Patient was found to have several compression fractures of the lumbar spine. Patient states that his pain is much better controlled today and he has been able to work with physical therapy for mobilization. Patient denies any new symptoms or complaints today. Objective - Vital Signs Vital signs: Vital Signs Temp 97.7 F 07/25/19 06:24 Pulse 56 L 07/25/19 06:24 Resp 15 07/25/19 06:24 BP 124/70 07/25/19 06:24 Pulse Ox 94 L 07/25/19 06:24 Intake & Output 07/24/19 07/25/19 07/25/19 18:59 06:59 18:59 Other: # Voids 1 2 - Exam On exam patient is sitting up comfortably in bed in no acute distress. Patient has good range of motion of bilateral lower extremities. Sensation intact bilaterally. Neurovascular status and circulatory status are intact. - Labs CBC & Chem 7: 07/25/19 07:39 07/25/19 07:39 Labs: Abnormal Lab Results - Last 24 Hours (Table) 07/24/19 07/24/19 07/25/19 Range/Units 07:48 20:54 07:01 Lymphocytes # (1.0-4.8) k/uL PT (9.0-12.0) sec INR (<1.2) BUN (9-20) mg/dL Glucose (74-99) mg/dL POC Glucose (mg/dL) 137 H 181 H (75-99) mg/dL C-Reactive Protein 13.7 H (<10.0) mg/L 07/25/19 07/25/19 07/25/19 Range/Units 07:39 07:39 07:39 Lymphocytes # 0.6 L (1.0-4.8) k/uL PT 17.1 H (9.0-12.0) sec INR 1.7 H (<1.2) BUN 24 H (9-20) mg/dL Glucose 138 H (74-99) mg/dL POC Glucose (mg/dL) (75-99) mg/dL C-Reactive Protein (<10.0) mg/L Assessment and Plan (1) Lumbar compression fracture Current Visit: Yes Status: Acute Code(s): S32.000A - WEDGE COMPRESSION FRACTURE OF UNSP LUMBAR VERTEBRA, INIT SNOMED Code(s): 711327083 Plan: 1. LSO brace has been ordered for the patient. 2. An MRI of the lumbar spine is pending. 3. Continue pain control. 4. Continue mobilization with physical therapy. 5. Awaiting MRI results for further recommendations.
[2019-07-25 11:44] LABS: Glucose,Whole Blood 120 mg/dL (75-99)
[2019-07-25 16:47] LABS: Glucose,Whole Blood 133 mg/dL (75-99)
[2019-07-25] MEDS ORDERED: WARFARIN 2.5 MG TAB PO ONE (18:00)
--- NOTE | 2019-07-25 19:19 | PN ---
PROGRESS NOTE DATE OF SERVICE: 07/25/2019 This 88-year-old gentleman was admitted with severe intractable back pain and difficulty walking with weakness with possible back pain, DJD and radicular pain being closely monitored at this time. The patient started on IV steroids. Blood sugars slightly elevated. INR is 1.77. Dr. Milligan is following the patient closely. MRI of the back was ordered for further evaluation. LSO brace was recommended. PAST MEDICAL HISTORY: Reviewed. REVIEW OF SYSTEMS: Cardiovascular system: As mentioned earlier. RESPIRATORY: as mentioned earlier. GI: As mentioned earlier. : No dysuria. CENTRAL NERVOUS SYSTEM: No numbness or weakness. CURRENT MEDICATIONS: 1. Tylenol 650 q.6h p.r.n. 2. [place] 5 mg q.6h p.r.n. 3. Xanax 0.5 daily. 4. Cordarone 200 mg p.o. daily. 5. Lipitor 20 mg daily. 6. Catapres 0.3 p.o. b.i.d. 7. Lasix 20 mg p.o. daily. 8. HydroDIURIL 25 mg p.o. daily. 9. NovoLog before meals and at bedtime. 10.Solu-Medrol 60 IV b.i.d. 11.Lopressor 50 mg p.o. b.i.d. 12.Morphine. 13.Narcan. 14.Protonix 40 mg a.c. breakfast. 15.K-Dur 10 mEq p.o. daily. 16.Diovan 160 mg p.o. b.i.d. 17.Coumadin. PHYSICAL EXAMINATION: Patient is alert, oriented x3. Pulse 64. Blood pressure 116/60, respiration 18, temperature 97.4, pulse ox 97% on room air. HEENT: Conjunctivae normal. NECK: No JVD. CARDIOVASCULAR: S1, S2 muffled. RESPIRATORY SYSTEM: Breath sounds diminished at the bases. No rhonchi. No crackles. ABDOMEN: Soft. Nontender. LEGS: No edema and no swelling. NERVOUS SYSTEM: Minimal weakness of the lower limbs. Examination of the back some tenderness present. LABS: CBC within normal limits, otherwise, sodium 140, potassium 4.5, glucose noted. Calcium is 9.5. The sedimentation rate is 8. C-reactive protein is only 13.7, normal is less than 10. ASSESSMENT: 1. Intractable back pain with failure of outpatient treatment with multiple lumbar compression fractures, L3-4, 5 with gait instability with lumbar degenerative joint disease. 2. Possible spinal stenosis as well as neurogenic claudication. 3. History of atrial fibrillation. 4. Coumadin monitoring. 5. Coronary artery disease. 6. Hypertension. 7. Hyperlipidemia. 8. History of pulmonary embolism. 9. Gait dysfunction. 10.History of diverticulosis. 11.History of coronary artery disease/ stent. 12.Remote history of nicotine dependence. 13.FULL CODE. RECOMMENDATIONS AND DISCUSSION: Recommend to continue current medications in this 88-year-old gentleman with multiple medical issues. The patient still has significant pain on movement up to 8 out of 10. I would recommend continue the pain medications and LSO brace. Monitor blood sugars closely. Continue with IV steroids. Prognosis guarded. Further recommendations to follow. Closely follow with Orthopedic surgery. Further recommendations to follow. MMODL / IJN: [id number] /
[2019-07-25 20:09] LABS: Glucose,Whole Blood 180 mg/dL (75-99)
[2019-07-25] MEDS: ACETAMINOPHEN TAB 325 MG TAB PO PRN (20:28)
[2019-07-25] MEDS: ALPRAZolam 0.5 MG TAB PO PRN (20:28)
[2019-07-26 07:19] LABS: Glucose,Whole Blood 157 mg/dL (75-99)
--- NOTE | 2019-07-26 07:47 | P.PN ---
Subjective This is a pleasant 68 years old male with past medical history of atrial fibrillation and Coumadin, coronary artery disease, hyperlipidemia, hyperte nsion, pulmonary embolism, diverticulosis. Presents because of fall as he was trying to get out of his car without losing consciousness associated with low back pain, however his back pain is much better today after patient was started on steroids and he feels mainly tightness rather than pain. He had some generalized weakness in his lower extremity but no neurological deficit, no urine or bowel incontinence, no saddle anesthesia, been evaluated by spine orthopedic surgeon, MRI of the spine is pending, LS {is ordered, at Dr. the patient and he agrees to go to a subacute rehab. Patient is currently on Solu- Medrol 60 mg twice daily, also he is on warfarin 2.5 mg, pharmacy to dose. CT of the lumbar spine showing severe spinal stenosis of L3 to L4 and moderate spinal stenosis of L2 to 3 and L4 to 5 Today patient could go to the restroom by himself using her walker Objective - Vital Signs Vital signs: Vital Signs Temp 97.3 F L 07/26/19 05:17 Pulse 60 07/26/19 05:17 Resp 18 07/26/19 05:17 BP 130/68 07/26/19 05:17 Pulse Ox 96 07/26/19 05:17 Intake & Output 07/25/19 07/26/19 07/26/19 18:59 06:59 18:59 Intake Total 540 650 Balance 540 650 Intake: Oral 540 650 Other: # Voids 1 2 # Bowel Movements 1 - Exam GENERAL: The patient is alert and oriented x3, not in any acute distress. Well developed, well nourished. HEENT: Pupils are round and equally reacting to light. EOMI. No scleral icterus. No conjunctival pallor. Normocephalic, atraumatic. No pharyngeal erythema. No thyromegaly. CARDIOVASCULAR: S1 and S2 present. No murmurs, rubs, or gallops. PULMONARY: Chest is clear to auscultation, no wheezing or crackles. ABDOMEN: Soft, nontender, nondistended, normoactive bowel sounds. No palpable organomegaly. -MUSCULOSKELETAL: No joint swelling or deformity. No low back tenderness EXTREMITIES: No cyanosis, clubbing, or pedal edema. -NEUROLOGICAL: Gross neurological examination did not reveal any focal deficits. Mild bilateral leg weakness looks more related to deconditioning, no sensory deficits. SKIN: No rashes. no petechiae. - Labs CBC & Chem 7: 07/25/19 07:39 07/25/19 07:39 Labs: Abnormal Lab Results - Last 24 Hours (Table) 07/25/19 07/25/19 07/25/19 Range/Units 07:39 07:39 07:39 Lymphocytes # 0.6 L (1.0-4.8) k/uL PT 17.1 H (9.0-12.0) sec INR 1.7 H (<1.2) BUN 24 H (9-20) mg/dL Glucose 138 H (74-99) mg/dL POC Glucose (mg/dL) (75-99) mg/dL 07/25/19 07/25/19 07/25/19 Range/Units 11:42 16:46 20:04 Lymphocytes # (1.0-4.8) k/uL PT (9.0-12.0) sec INR (<1.2) BUN (9-20) mg/dL Glucose (74-99) mg/dL POC Glucose (mg/dL) 120 H 133 H 180 H (75-99) mg/dL 07/26/19 Range/Units 07:01 Lymphocytes # (1.0-4.8) k/uL PT (9.0-12.0) sec INR (<1.2) BUN (9-20) mg/dL Glucose (74-99) mg/dL POC Glucose (mg/dL) 157 H (75-99) mg/dL Assessment and Plan Assessment: Fall. Patient fell as he was trying to get out of the car severe spinal stenosis of L3 to L4 and moderate spinal stenosis of L2 to 3 and L4 to 5 low back pain secondary to above, improved Pulmonary fibrosis/atelectasis Hepatic steatosis Hypertension History of coronary artery disease Chronic/paroxysmal atrial fibrillation on Coumadin Hyperlipidemia History of pulmonary embolism on Coumadin Diverticulosis without diverticulitis Plan: This is a pleasant 88 years old male who presents with fall and spinal stenosis. MRI of the back is pending and patient is been followed closely by spinal orthopedic team, continue with steroids, continue with warfarin for pharmacy to dose for his history of pulmonary embolism and atrial fibrillation. LSO brace ordered. Labs and medication were reviewed.. Continue same treatment. Continue with symptomatic treatment. Resume home medication. Monitor lytes and vitals. DVT and GI prophylaxis. Further recommendations warfarin GI Prophylaxis: Protonix PT/OT: Pending after the brace Prognosis is guarded
[2019-07-26] MEDS: methylPREDNISolone SOD SUCCI 125 MG/2 ML VIAL IV SCH ×2 (08:02→20:17)
[2019-07-26] MEDS: HYDROCHLOROTHIAZIDE 25 MG TAB PO SCH (08:03)
[2019-07-26] MEDS: PANTOPRAZOLE 40 MG TABLET PO SCH (08:03)
[2019-07-26] MEDS: POTASSIUM CHLORIDE ER 20 MEQ TAB.ER PO SCH (08:03)
[2019-07-26] MEDS: AMIODARONE 200 MG TAB PO SCH (08:03)
[2019-07-26] MEDS: FUROSEMIDE 20 MG TAB PO SCH (08:03)
[2019-07-26] MEDS: cloNIDine HCL 0.1 MG TAB PO SCH ×2 (08:03→20:16)
[2019-07-26] MEDS: INSULIN ASPART (NovoLOG) 100 UNIT/ML VIAL SQ SCH ×4 (08:03→20:17)
[2019-07-26] MEDS: ATORVASTATIN 20 MG TAB PO SCH (08:04)
[2019-07-26] MEDS: METOPROLOL TARTRATE 50 MG TAB PO SCH ×2 (08:04→20:16)
[2019-07-26] MEDS: VALSARTAN 160 MG TAB PO SCH ×2 (08:13→20:16)
[2019-07-26 09:04] LABS: INR 2.1 (<1.2); Prothrombin Time 20.7 sec (9.0-12.0)
[2019-07-26 09:05] LABS: Basophils % (A) 0 %; Eosinophils % (A) 0 %; HCT 38.2 % (39.0-53.0); HGB 12.5 gm/dL (13.0-17.5); Lymphocytes # (A) 0.6 k/uL (1.0-4.8); Lymphocytes % (A) 9 %; MCH 30.2 pg (25.0-35.0); MCHC 32.7 g/dL (31.0-37.0); MCV 92.4 fL (80.0-100.0); Mean Platelet Volume 6.7; Monocytes # (A) 0.3 k/uL (0-1.0); Monocytes % (A) 4 %; Neutrophils # (A) 6.2 k/uL (1.3-7.7); Neutrophils % (A) 86 %; Platelet Count 278 k/uL (150-450); RBC 4.13 m/uL (4.30-5.90); RDW 13.4 % (11.5-15.5); WBC 7.2 k/uL (3.8-10.6)
[2019-07-26 09:19] LABS: Calcium 9.1 mg/dL (8.4-10.2)
--- NOTE | 2019-07-26 10:47 | MR ---
EXAMINATION TYPE: MR lumbar spine wo con DATE OF EXAM: 07/26/2019 COMPARISON: CT scan 07/23/2019 HISTORY: L3 L4 L5 compression fxs uncertain age, stenosis TECHNIQUE: T1 and T2 axial and sagittal images of the lumbar spine are submitted. FINDINGS: There is no abnormal signal seen within the visualized spinal cord or paraspinal soft tissu es. Compression deformity of L3 vertebral body height loss of approximately 40%. L4 has vertebral body height loss of approximately 20%. Multilevel disc desiccation is seen with at least disc bulging disc herniation that L3-L4, L4-5 and L 5-S1. There is mild aneurysmal dilation of the proximal abdominal aorta measuring 3.1 cm. At L1-2 there is disc desiccation and hypertrophic change of the facets with no disc herniation, ramsey l stenosis, or foraminal encroachment. At L2-3 there is disc desiccation. Broad-based disc bulging and hypertrophic changes of the facets. T here is approximately 50% with 10% retropulsion. Ligamentum flavum hypertrophy contributes to severe canal stenosis and bilateral foraminal encroachment. Approximate 50% compression deformity of the L3 segment appears to be a subacute basis. At L3-4 there is degenerative disc disease with broad-based disc bulging. There is 5% retropulsion. F acet arthropathy and ligamentum flavum hypertrophy contribute to severe canal stenosis. L4 vertebral segment demonstrates an approximate 20% superior endplate compression fracture which appears to be muniz bacute to chronic. At L4-5 there is disc desiccation with facet arthropathy and ligamentum flavum hypertrophy. There is bilateral moderate foraminal encroachment and mild canal stenosis with central broad-based disc bulgi ng. At L5-S1 there is minimal anterolisthesis measuring 1 to 2 mm. There is a spondylolysis unilaterally on the right. Disc bulging noted with hypertrophic changes of the facets resulting in mild to moderat e bilateral foraminal encroachment but no canal stenosis. Ligamentum flavum hypertrophy greater on th e left noted. IMPRESSION: 1. There are compression deformities measuring 50% at L3 and 20% at L4 which appear to be on a subacu te to chronic basis. Retropulsion at L2-L3 in concert with disc bulging and hypertrophic changes resu lts in severe canal stenosis and bilateral foraminal encroachment. 2. Severe canal stenosis due to disc bulging and hypertrophic changes L3-L4 with bilateral foraminal encroachment. 3. Disc bulging and hypertrophic changes L4-L5 results in moderate bilateral foraminal encroachment a nd mild canal stenosis. 4. Minimal anterolisthesis L5 on S1 with unilateral right spondylolysis of L5. Bilateral foraminal en croachment but no canal stenosis. 5. 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
[2019-07-26 11:59] LABS: Glucose,Whole Blood 141 mg/dL (75-99)
--- NOTE | 2019-07-26 13:52 | P.PN ---
Progress Note - Text Progress Note Date: 07/26/19 Patient is seen and examined today at bedside. The patient has some pain around the his lower back particularly with changing positions as expected. Pain is being controlled with medication. He has been able to mobilize back and forth to the bathroom with his walker. He is not yet received his LSO brace. Physical Exam Afebrile with stable vital signs Abdomen is soft nontender. Chest has good excursion deep and space expiration His low back does not have any point tenderness to palpation. The skin is clear.Extremities have not had neurologic change from prior to surgery. Calves and thighs were soft nontender without evidence of DVT. MRI of lumbar spine is reviewed Assessment/Plan L3 and L4 subacute compression fractures which appear stable spinal stenosis L2-3 and L3 4 Degenerative spondylosis Bilateral lower extremity radiculopathy Neurogenic claudication Limited ambulation with a walker We will continue to increase the patient's mobilization with therapy. We are primarily are worried that he needs to improve his stability before he is able to be on his own at home with his walker. Once he is comfortable with his brace and his walker I think it would be okay for him to be home if he would be deemed safe by physical therapy. Otherwise he needs to be residential for further strengthening and mobilization. We will continue pain control with oral or IV medications. he is currently tolerating well with only occasional oral medications The fractures at L5 3 and L4. Be stable and do not have plans for surgical intervention for those at this point. He would be a candidate for further intervention including the possibility of interventional pain management or even possibly surgery is symptoms were to worsen. Currently he is making some progress with IV steroids and we will convert him over to oral steroids for discharge possibly tomorrow. We'll continue to follow patient closely.
[2019-07-26 16:57] LABS: Glucose,Whole Blood 161 mg/dL (75-99)
[2019-07-26] MEDS ORDERED: WARFARIN 1.25 MG TAB PO ONE (18:00)
[2019-07-26 20:16] LABS: Glucose,Whole Blood 178 mg/dL (75-99)
[2019-07-26] MEDS: ALPRAZolam 0.5 MG TAB PO PRN (20:16)
[2019-07-26 23:01] VITALS: RESP 18
[2019-07-27 05:07] VITALS: BP 138/82; PULSE 57; TEMP 97.4
[2019-07-27 07:22] LABS: Glucose,Whole Blood 139 mg/dL (75-99)
[2019-07-27] MEDS ORDERED: CALCIUM CARB-VIT D 500MG-200UN 1 EACH TAB PO SCH (07:30)
[2019-07-27] MEDS: HYDROCHLOROTHIAZIDE 25 MG TAB PO SCH (07:55)
[2019-07-27] MEDS: cloNIDine HCL 0.1 MG TAB PO SCH (07:55)
[2019-07-27] MEDS: methylPREDNISolone SOD SUCCI 125 MG/2 ML VIAL IV SCH (07:55)
[2019-07-27] MEDS: INSULIN ASPART (NovoLOG) 100 UNIT/ML VIAL SQ SCH ×2 (07:56→12:24)
[2019-07-27] MEDS: ATORVASTATIN 20 MG TAB PO SCH (07:56)
[2019-07-27] MEDS: FUROSEMIDE 20 MG TAB PO SCH (07:56)
[2019-07-27] MEDS: POTASSIUM CHLORIDE ER 20 MEQ TAB.ER PO SCH (07:56)
[2019-07-27] MEDS: METOPROLOL TARTRATE 50 MG TAB PO SCH (07:56)
[2019-07-27] MEDS: PANTOPRAZOLE 40 MG TABLET PO SCH (07:56)
[2019-07-27] MEDS: AMIODARONE 200 MG TAB PO SCH (07:56)
[2019-07-27] MEDS: VALSARTAN 160 MG TAB PO SCH (07:57)
[2019-07-27 09:24] LABS: Basophils % (A) 0 %; Eosinophils % (A) 0 %; HCT 38.8 % (39.0-53.0); HGB 12.5 gm/dL (13.0-17.5); Lymphocytes # (A) 0.6 k/uL (1.0-4.8); Lymphocytes % (A) 7 %; MCH 29.9 pg (25.0-35.0); MCHC 32.3 g/dL (31.0-37.0); MCV 92.7 fL (80.0-100.0); Mean Platelet Volume 6.7; Monocytes # (A) 0.3 k/uL (0-1.0); Monocytes % (A) 4 %; Neutrophils # (A) 7.1 k/uL (1.3-7.7); Neutrophils % (A) 89 %; Platelet Count 287 k/uL (150-450); RBC 4.19 m/uL (4.30-5.90); RDW 13.5 % (11.5-15.5)
[2019-07-27 09:45] LABS: INR 2.5 (<1.2); Prothrombin Time 24.2 sec (9.0-12.0)
[2019-07-27 11:46] LABS: Glucose,Whole Blood 111 mg/dL (75-99)
[2019-07-27] MEDS ORDERED: WARFARIN 1.25 MG TAB PO ONE (18:00)
--- NOTE | 2019-07-27 23:34 | P.DS ---
Providers Date of admission: 07/25/19 11:21 Attending physician: Naveed Huertas Consults: 07/23/19 13:37 Consult Physician Urgent Consulting Provider: Lisa Milligan Consult Reason/Comments: Lumbar compression fracture, spinal stenosis, difficulty ambulating Do you want consulting provider notified?: Already Contacted Primary care physician: [facility] Course: Diagnoses: Fall. Patient fell as he was trying to get out of the car severe spinal stenosis of L3 to L4 and mild spinal stenosis of L4 to L5 Subacute to chronic compression deformities of L3 and L4 low back pain secondary to above, improved Pulmonary fibrosis/atelectasis Hepatic steatosis Hypertension History of coronary artery disease Chronic/paroxysmal atrial fibrillation on Coumadin Hyperlipidemia History of pulmonary embolism on Coumadin Diverticulosis without diverticulitis Hospital course: This is a pleasant 68 years old male with past medical history of atrial fibrillation and Coumadin, coronary artery disease, hyperlipidemia, hypertension, pulmonary embolism, diverticulosis. Presents because of fall as he was trying to get out of his car without losing consciousness associated with low back pain, however his back pain is much better on the day of discharge that's almost completely resolved. His weakness in his legs are also improving and his ability to walk using a walker. On admission He had some generalized weakness in his lower extremity but no neurological deficit, no urine or bowel incontinence, no saddle anesthesia, been evaluated by spine orthopedic surgeon, CT of the lumbar spine showing severe spinal stenosis of L3 to L4 and moderate spinal stenosis of L2 to 3 and L4 to 5. MRI of the lumbar spine: Subacute to chronic compression deformities of L3 and L4, with severe canal stenosis at L3 to L4 and mild to moderate stenosis at L4 to L5. Patient was treated with Solu- Medrol 60 mg twice daily and he showed interval improvement. Patient will be discharged on tapered dose of steroids. Also a brace for his back problem is provided at bedside for the patient and instruction is provided as well. Calcium and vitamin D is provided for the patient Physical therapy evaluated the patient and recommended home with home health care. Patient also has been taking warfarin for his history of atrial fibrillation. His INR prior to discharge was 2.5 Patient was cleared for discharge by Dr. Milligan. Patient himself was eager to go home. On the day of discharge she denies new symptoms. He denies chest pain or dyspnea, no change in urine or bowel habits. No fever Problems and management plan were discussed with the patient and he verbalized understanding and acceptance Patient was found stable and can be discharged home however he needs follow-up as an outpatient. Patient was instructed to follow up with PCP within one week and patient agrees. pt agrees with appointments made for him with on 08/10 and [facility] on 07/30 Gen: patient is a AAOx3, no distress CVS: S1-S2, RRR, no murmur Lungs: B/L CTA, no wheezing Abdomen: soft, no distention, no tenderness, positive bowel sounds Extremity: no leg edema or induration Time spent more than 35 minutes Patient Condition at Discharge: Stable Plan - Discharge Summary Discharge Rx Participant: No New Discharge Prescriptions: New predniSONE 10 mg PO DIRECTED #24 tab Calcium Carb-Vit D 500Mg-200Un [Oscal 500+D] 1 each PO BID-W/MEALS #60 tab Continue Atorvastatin [Lipitor] 20 mg PO DAILY Metoprolol Tartrate [Lopressor] 50 mg PO BID Potassium Chloride ER [K-Dur 20] 20 meq PO DAILY ALPRAZolam [Xanax] 0.25 - 0.5 mg PO DAILY PRN PRN Reason: Anxiety Hydrochlorothiazide [Hydrodiuril] 25 mg PO DAILY cloNIDine HCL 0.3 mg PO BID Furosemide [Lasix] 20 mg PO DAILY Amiodarone [Cordarone] 200 mg PO DAILY Valsartan [Diovan] 160 mg PO BID Warfarin Sodium [Jantoven] 1.25 mg PO HS Discharge Medication List Atorvastatin [Lipitor] 20 mg PO DAILY 11/10/15 [History] Metoprolol Tartrate [Lopressor] 50 mg PO BID 12/21/15 [History] ALPRAZolam [Xanax] 0.25 - 0.5 mg PO DAILY PRN 07/23/19 [History] Amiodarone [Cordarone] 200 mg PO DAILY 07/23/19 [History] Furosemide [Lasix] 20 mg PO DAILY 07/23/19 [History] Hydrochlorothiazide [Hydrodiuril] 25 mg PO DAILY 07/23/19 [History] Potassium Chloride ER [K-Dur 20] 20 meq PO DAILY 07/23/19 [History] Valsartan [Diovan] 160 mg PO BID 07/23/19 [History] Warfarin Sodium [Jantoven] 1.25 mg PO HS 07/23/19 [History] cloNIDine HCL 0.3 mg PO BID 07/23/19 [History] predniSONE 10 mg PO DIRECTED #24 tab 07/26/19 [Rx] Calcium Carb-Vit D 500Mg-200Un [Oscal 500+D] 1 each PO BID-W/MEALS #60 tab 07/18 [Rx] Follow up Appointment(s)/Referral(s): [facility], [NON-STAFF] - Lisa Milligan DO [Doctor of Osteopathic Medicine] - 08/10/19 10:15 am Titi Nix III, MD [Primary Care Provider] - 07/30/19 1:30 pm [facility] [NON-STAFF] - Isma [facility]Jacinda [NON-STAFF] - Patient Instructions/Handouts: Lumbar Spinal Stenosis (DC), Lumbar Brace (DC) Activity/Diet/Wound Care/Special Instructions: Alpa to deliver LSO brace to bedside on 07/26/19. Patient may ambulate with LSO brace on. He does not need to wear the LSO brace while in bed or for bathing. Patient is to use walker as needed for ambulation. Patient is should avoid any repetitive bending twisting or lifting. No lifting greater than 15 pounds. Discharge Disposition: HOME WITH HOME HEALTH SERVICES
== END 2019-07-27 13:22 | disposition home health service (06) | DRG 552 ==
LOC: EC 10:53 → 4MS4W 13:37 → OBSVTOIN 07-25 11:21
PROVIDERS: ADMIT Internal Medicine; ATTEND Internal Medicine
DX: M48.062 Spinal stenosis, lumbar region with neurogenic claudication (principal); J98.11 Atelectasis; M48.56XA Collapsed vertebra, not elsewhere classified, lumbar region, initial encounter for fracture; I48.0 Paroxysmal atrial fibrillation; J84.10 Pulmonary fibrosis, unspecified; K76.0 Fatty (change of) liver, not elsewhere classified; M47.26 Other spondylosis with radiculopathy, lumbar region; M51.16 Intervertebral disc disorders with radiculopathy, lumbar region; E78.5 Hyperlipidemia, unspecified; I10 Essential (primary) hypertension; I25.10 Atherosclerotic heart disease of native coronary artery without angina pectoris; K57.90 Diverticulosis of intestine, part unspecified, without perforation or abscess without bleeding; R26.2 Difficulty in walking, not elsewhere classified; H91.90 Unspecified hearing loss, unspecified ear; H54.7 Unspecified visual loss; Z79.01 Long term (current) use of anticoagulants; Z79.899 Other long term (current) drug therapy; Z86.711 Personal history of pulmonary embolism; Z86.718 Personal history of other venous thrombosis and embolism; Z87.891 Personal history of nicotine dependence; Z95.5 Presence of coronary angioplasty implant and graft; Z82.49 Family history of ischemic heart disease and other diseases of the circulatory system; Z82.5 Family history of asthma and other chronic lower respiratory diseases
CPT/HCPCS: 36415; 71045; 72148; 74177; 80048; 80053; 81001; 81003; 85025; 85610; 85652; 85730; 86140; 94760; 99285

== ENCOUNTER 2019-07-30 12:01 | Inpatient (IN) | payer MEDICARE ==
--- NOTE | 2019-07-30 12:46 | ED ---
General Adult HPI - General Chief complaint: Weakness Stated complaint: Weakness in legs, frequent urinating Time Seen by Provider: 07/30/19 12:20 Source: patient, RN notes reviewed, old records reviewed Mode of arrival: wheelchair Limitations: no limitations - History of Present Illness Initial comments: This is an 88-year-old male who presents emergency Department complaining of generalized weakness and falling. Patient states he was recently admitted to the hospital for back pain and spinal stenosis. He was told he needed to go to rehab and he did not feel as though he needed to at that time so he was discharged home. Since then patient has fallen every day and his been much weaker. Patient comes in today stating he would like to be admitted to a rehab center so they can get his strength up. Patient also has been complaining of urinary frequency over the last 2 days. Patient denies any fever chills per patient denies any abdominal pain. Patient denies any areas of numbness or weakness. Patient denies any chest pain palpitations difficulty breathing shortness breath per patient denies being lightheaded or dizzy. Patient denies any injury from any of the falls. - Related Data Home Medications Medication Instructions Recorded Confirmed Atorvastatin [Lipitor] 20 mg PO DAILY 11/10/15 07/30/19 Metoprolol Tartrate [Lopressor] 50 mg PO BID 12/21/15 07/30/19 ALPRAZolam [Xanax] 0.25 - 0.5 mg PO DAILY PRN 07/23/19 07/30/19 Amiodarone [Cordarone] 200 mg PO DAILY 07/23/19 07/30/19 Furosemide [Lasix] 20 mg PO DAILY 07/23/19 07/30/19 Hydrochlorothiazide [Hydrodiuril] 25 mg PO DAILY 07/23/19 07/30/19 Potassium Chloride ER [K-Dur 20] 20 meq PO DAILY 07/23/19 07/30/19 Valsartan [Diovan] 160 mg PO BID 07/23/19 07/30/19 Warfarin Sodium [Jantoven] 1.25 mg PO HS 07/23/19 07/30/19 cloNIDine HCL 0.3 mg PO BID 07/23/19 07/30/19 Albuterol Sulfate [Proair Hfa] 1 - 2 puff INHALATION RT-Q6H PRN 07/30/19 07/30/19 Calcium Carb-Vit D 500Mg-200Un 1 tab PO BID-W/MEALS 07/30/19 07/30/19 [Oscal 500+D] predniSONE See Taper PO DAILY 07/30/19 07/30/19 Allergies Allergy/AdvReac Type Severity Reaction Status Date / Time No Known Allergies Allergy Verified 07/30/19 13:14 Review of Systems ROS Statement: Those systems with pertinent positive or pertinent negative responses have been documented in the HPI. ROS Other: All systems not noted in ROS Statement are negative. Past Medical History Past Medical History: Atrial Fibrillation, Coronary Artery Disease (CAD), Hyperlipidemia, Hypertension, Pulmonary Embolus (PE) Additional Past Medical History / Comment(s): 2011 PE, diverticulosis History of Any Multi-Drug Resistant Organisms: None Reported Past Surgical History: Heart Catheterization With Stent, Hernia Repair, Tonsillectomy Additional Past Surgical History / Comment(s): colonoscopy, cardioversion Past Anesthesia/Blood Transfusion Reactions: No Reported Reaction Additional Past Anesthesia/Blood Transfusion Reaction / Comment(s): Pt states he has never received blood Date of Last Stent Placement:: 03/06/12 Past Psychological History: No Psychological Hx Reported Smoking Status: Former smoker Past Alcohol Use History: None Reported Past Drug Use History: None Reported - Past Family History Mother Family Medical History: No Reported History Additional Family Medical History / Comment(s): Mother had pulmonary fibrosis. She at age 88yrs. Father Family Medical History: Myocardial Infarction ([place]) Additional Family Medical History / Comment(s): Father of a [place] in his 60's General Exam - General Exam Comments Initial Comments: GENERAL: Patient is well-developed and well-nourished. Patient is nontoxic and well- hydrated and is in mild distress. ENT: Neck is soft and supple. No significant lymphadenopathy is noted. Oropharynx is clear. Moist mucous membranes. Neck has full range of motion without eliciting any pain. EYES: The sclera were anicteric and conjunctiva were pink and moist. Extraocular movements were intact and pupils were equal round and reactive to light. Eyelids were unremarkable. PULMONARY: Unlabored respirations. Good breath sounds bilaterally. No audible rales rhonchi or wheezing was noted. CARDIOVASCULAR: There is a regular rate and rhythm without any murmurs gallops or rubs. ABDOMEN: Soft and nontender with normal bowel sounds. SKIN: Skin is clear with no lesions or rashes and otherwise unremarkable. NEUROLOGIC: Patient is alert and oriented x3. Cranial nerves II through XII are grossly intact. Motor and sensory are also intact. Normal speech, volume and content. Symmetrical smile. Patient has no perineum numbness negative straight leg test bilaterally. MUSCULOSKELETAL: Normal extremities with adequate strength and full range of motion. LYMPHATICS: No significant lymphadenopathy is noted PSYCHIATRIC: Normal psychiatric evaluation. Limitations: no limitations Course Vital Signs 07/30/19 12:20 Temperature 97.9 F Pulse Rate 63 Respiratory 18 Rate Blood Pressure 183/96 O2 Sat by Pulse 93 L Oximetry Medical Decision Making - Medical Decision Making EKG shows normal sinus rhythm at 60 bpm UT interval 168 QRSs 160 QT interval is 5:30 QTC is 5:30. Patient's EKG shows no ST segment elevation or depression or T wave abnormalities are noted. Patient has a right bundle branch block. Patient is T-wave inversions in 3 and aVF I spoke with sheet agreed to admit the patient I admitted the patient and wrote admitting orders. - Lab Data Result diagrams: 07/30/19 13:15 07/30/19 13:07 Lab Results 07/30/19 07/30/19 07/30/19 Range/Units 12:45 13:07 13:07 WBC (3.8-10.6) k/uL RBC (4.30-5.90) m/uL Hgb (13.0-17.5) gm/dL Hct (39.0-53.0) % MCV (80.0-100.0) fL MCH (25.0-35.0) pg MCHC (31.0-37.0) g/dL RDW (11.5-15.5) % Plt Count (150-450) k/uL Neutrophils % % Lymphocytes % % Monocytes % % Eosinophils % % Basophils % % Neutrophils # (1.3-7.7) k/uL Lymphocytes # (1.0-4.8) k/uL Monocytes # (0-1.0) k/uL Eosinophils # (0-0.7) k/uL Basophils # (0-0.2) k/uL PT (9.0-12.0) sec INR (<1.2) APTT (22.0-30.0) sec Sodium 138 (137-145) mmol/L Potassium 3.6 (3.5-5.1) mmol/L Chloride 97 L (98-107) mmol/L Carbon Dioxide 33 H (22-30) mmol/L Anion Gap 8 mmol/L BUN 30 H (9-20) mg/dL Creatinine 1.03 (0.66-1.25) mg/dL Est GFR (CKD-EPI)AfAm 76 (>60 ml/min/1.73 sqM) Est GFR (CKD-EPI)NonAf 66 (>60 ml/min/1.73 sqM) Glucose 129 H (74-99) mg/dL Plasma Lactic Acid John 1.5 (0.7-2.0) mmol/L Calcium 9.5 (8.4-10.2) mg/dL Magnesium 2.3 (1.6-2.3) mg/dL Total Bilirubin 0.8 (0.2-1.3) mg/dL AST 31 (17-59) U/L ALT 41 (4-49) U/L Alkaline Phosphatase 107 (38-126) U/L Total Protein 6.9 (6.3-8.2) g/dL Albumin 3.9 (3.5-5.0) g/dL Urine Color Light Yellow Urine Appearance Clear (Clear) Urine pH 6.0 (5.0-8.0) Ur Specific [place] 1.007 (1.001-1.035) Urine Protein Negative (Negative) Urine Glucose (UA) Negative (Negative) Urine Ketones Negative (Negative) Urine Blood Negative (Negative) Urine Nitrite Negative (Negative) Urine Bilirubin Negative (Negative) Urine Urobilinogen <2.0 (<2.0) mg/dL Ur Leukocyte Esterase Negative (Negative) 07/30/19 07/30/19 Range/Units 13:07 13:15 WBC 9.0 (3.8-10.6) k/uL RBC 4.92 (4.30-5.90) m/uL Hgb 14.9 (13.0-17.5) gm/dL Hct 45.0 (39.0-53.0) % MCV 91.4 (80.0-100.0) fL MCH 30.3 (25.0-35.0) pg MCHC 33.1 (31.0-37.0) g/dL RDW 13.3 (11.5-15.5) % Plt Count 293 (150-450) k/uL Neutrophils % 92 % Lymphocytes % 6 % Monocytes % 2 % Eosinophils % 0 % Basophils % 0 % Neutrophils # 8.2 H (1.3-7.7) k/uL Lymphocytes # 0.5 L (1.0-4.8) k/uL Monocytes # 0.2 (0-1.0) k/uL Eosinophils # 0.0 (0-0.7) k/uL Basophils # 0.0 (0-0.2) k/uL PT 26.8 H (9.0-12.0) sec INR 2.8 H (<1.2) APTT 30.5 H (22.0-30.0) sec Sodium (137-145) mmol/L Potassium (3.5-5.1) mmol/L Chloride (98-107) mmol/L Carbon Dioxide (22-30) mmol/L Anion Gap mmol/L BUN (9-20) mg/dL Creatinine (0.66-1.25) mg/dL Est GFR (CKD-EPI)AfAm (>60 ml/min/1.73 sqM) Est GFR (CKD-EPI)NonAf (>60 ml/min/1.73 sqM) Glucose (74-99) mg/dL Plasma Lactic Acid John (0.7-2.0) mmol/L Calcium (8.4-10.2) mg/dL Magnesium (1.6-2.3) mg/dL Total Bilirubin (0.2-1.3) mg/dL AST (17-59) U/L ALT (4-49) U/L Alkaline Phosphatase (38-126) U/L Total Protein (6.3-8.2) g/dL Albumin (3.5-5.0) g/dL Urine Color Urine Appearance (Clear) Urine pH (5.0-8.0) Ur Specific [place] (1.001-1.035) Urine Protein (Negative) Urine Glucose (UA) (Negative) Urine Ketones (Negative) Urine Blood (Negative) Urine Nitrite (Negative) Urine Bilirubin (Negative) Urine Urobilinogen (<2.0) mg/dL Ur Leukocyte Esterase (Negative) Disposition Clinical Impression: Leg weakness, Urinary frequency Disposition: ADMITTED IP TO THIS HOSP Referrals: Noman Nielson MD [Primary Care Provider] - 1-2 days Time of Disposition: 13:57
[2019-07-30 13:08] LABS: Appearance,Urine Clear (Clear); Bilirubin,Urine Negative (Negative); Blood,Urine Negative (Negative); Color,Urine Light Yellow; Glucose,Urine (UA) Negative (Negative); Ketones,Urine Negative (Negative); Leukocyte Esterase,Urine Negative (Negative); Nitrite,Urine Negative (Negative); Protein,Urine Negative (Negative); Specific Gravity,Urine 1.007 (1.001-1.035); Urobilinogen,Urine <2.0 mg/dL (<2.0)
[2019-07-30 13:20] LABS: Basophils % (A) 0 %; Eosinophils % (A) 0 %; HGB 14.9 gm/dL (13.0-17.5); Lymphocytes # (A) 0.5 k/uL (1.0-4.8); Lymphocytes % (A) 6 %; MCH 30.3 pg (25.0-35.0); MCHC 33.1 g/dL (31.0-37.0); MCV 91.4 fL (80.0-100.0); Mean Platelet Volume 7.1; Monocytes # (A) 0.2 k/uL (0-1.0); Monocytes % (A) 2 %; Neutrophils # (A) 8.2 k/uL (1.3-7.7); Neutrophils % (A) 92 %; Platelet Count 293 k/uL (150-450); RBC 4.92 m/uL (4.30-5.90); RDW 13.3 % (11.5-15.5)
[2019-07-30 13:27] LABS: Albumin 3.9 g/dL (3.5-5.0); Calcium 9.5 mg/dL (8.4-10.2); Magnesium 2.3 mg/dL (1.6-2.3); Potassium 3.6 mmol/L (3.5-5.1); Total Bilirubin 0.8 mg/dL (0.2-1.3); Total Protein 6.9 g/dL (6.3-8.2)
[2019-07-30 13:36] LABS: INR 2.8 (<1.2); Partial Thromboplastin Time 30.5 sec (22.0-30.0); Prothrombin Time 26.8 sec (9.0-12.0)
--- NOTE | 2019-07-30 13:51 | XR ---
EXAMINATION TYPE: XR chest 2V DATE OF EXAM: 07/30/2019 COMPARISON: Prior chest x-ray 07/24/2019 HISTORY: Weakness and lower extremities, abnormal chest x-ray TECHNIQUE: Frontal and lateral views of the chest are obtained. FINDINGS: Aorta is dense. Lung volumes are improved. Heart size is within normal limits. No evident pneumothorax or pleural effusion, no airspace disease. Mild interstitial prominence again noted at th e left costophrenic angle level. IMPRESSION: May be some basilar atelectasis or scarring.
--- NOTE | 2019-07-30 16:34 | P.HPIM ---
History of Present Illness This is a pleasant 68 years old male with past medical history of atrial fibrillation and Coumadin, coronary artery disease, hyperlipidemia, hypertension, pulmonary embolism, diverticulosis.he was recently discharged from the hospital about 3 days ago for a fall secondary to significant spinal stenosis. However patient went home With home health care. this time he presents because of frequent falls. he fell about 4 times yesterday 1 time he fell on his knees, however he denies head trauma. no loss of consciousness. No other complaints or pain. He is able to move his legs free like last time while he is lying in bed. His PCP was trying to get him to rehab however he was pending insurance authorization and weekend was coming so his PCP advised him to come to the emergency room vital signs stable. CBC is unremarkable, sugars controlled. INR is 2.8 .electrolytes and creatinine are unremarkable. Urine analysis is not suspicious for infection. EKG showing normal sinus rhythm with with QTC 530, no significant ST-T changes. Chest x-ray bilateral basal atelectasis Review of Systems CONSTITUTIONAL: No fever, no malaise, no fatigue. HEENT: No recent visual problems or hearing problems. Denied any sore throat. CARDIOVASCULAR: No orthopnea, PND, no palpitations, no syncope. PULMONARY: No shortness of breath, no cough, no hemoptysis. GASTROINTESTINAL: No diarrhea, no nausea, no vomiting, no abdominal pain. Normoactive bowel sounds. NEUROLOGICAL: No headaches, no weakness, no numbness. HEMATOLOGICAL: Denies any bleeding or petechiae. GENITOURINARY: Denies any burning micturition, frequency, or urgency. MUSCULOSKELETAL/RHEUMATOLOGICAL: Denies any joint pain, swelling, or any muscle pain. ENDOCRINE: Denies any polyuria or polydipsia. Past Medical History Past Medical History: Atrial Fibrillation, Coronary Artery Disease (CAD), Hyperlipidemia, Hypertension, Pulmonary Embolus (PE) Additional Past Medical History / Comment(s): 2011 PE, diverticulosis History of Any Multi-Drug Resistant Organisms: None Reported Past Surgical History: Heart Catheterization With Stent, Hernia Repair, Tonsillectomy Additional Past Surgical History / Comment(s): colonoscopy, cardioversion Past Anesthesia/Blood Transfusion Reactions: No Reported Reaction Additional Past Anesthesia/Blood Transfusion Reaction / Comment(s): Pt states he has never received blood Date of Last Stent Placement:: 7/20/12 Past Psychological History: No Psychological Hx Reported Smoking Status: Former smoker Past Alcohol Use History: None Reported Past Drug Use History: None Reported - Past Family History Mother Family Medical History: No Reported History Additional Family Medical History / Comment(s): Mother had pulmonary fibrosis. She at age 88yrs. Father Family Medical History: Myocardial Infarction ([place]) Additional Family Medical History / Comment(s): Father of a [place] in his 60's Medications and Allergies Home Medications Medication Instructions Recorded Confirmed Type Atorvastatin [Lipitor] 20 mg PO DAILY 11/10/15 07/30/19 History Metoprolol Tartrate [Lopressor] 50 mg PO BID 12/21/15 07/30/19 History ALPRAZolam [Xanax] 0.25 - 0.5 mg PO DAILY PRN 07/23/19 07/30/19 History Amiodarone [Cordarone] 200 mg PO DAILY 07/23/19 07/30/19 History Furosemide [Lasix] 20 mg PO DAILY 07/23/19 07/30/19 History Hydrochlorothiazide [Hydrodiuril] 25 mg PO DAILY 07/23/19 07/30/19 History Potassium Chloride ER [K-Dur 20] 20 meq PO DAILY 07/23/19 07/30/19 History Valsartan [Diovan] 160 mg PO BID 07/23/19 07/30/19 History Warfarin Sodium [Jantoven] 1.25 mg PO HS 07/23/19 07/30/19 History cloNIDine HCL 0.3 mg PO BID 07/23/19 07/30/19 History Albuterol Sulfate [Proair Hfa] 1 - 2 puff INHALATION RT-Q6H PRN 07/30/19 07/30/19 History Calcium Carb-Vit D 500Mg-200Un 1 tab PO BID-W/MEALS 07/30/19 07/30/19 History [Oscal 500+D] predniSONE See Taper PO DAILY 07/30/19 07/30/19 History Allergies Allergy/AdvReac Type Severity Reaction Status Date / Time No Known Allergies Allergy Verified 07/30/19 13:14 Physical Exam Vitals: Vital Signs Temp Pulse Resp BP Pulse Ox 07/30/19 12:20 97.9 F 63 18 183/96 93 L Intake and Output 07/29/19 07/30/19 07/30/19 22:59 06:59 14:59 Other: Weight 75.296 kg GENERAL: The patient is alert and oriented x3, not in any acute distress. Well developed, well nourished. HEENT: Pupils are round and equally reacting to light. EOMI. No scleral icterus. No conjunctival pallor. Normocephalic, atraumatic. No pharyngeal erythema. No thyromegaly. CARDIOVASCULAR: S1 and S2 present. No murmurs, rubs, or gallops. PULMONARY: Chest is clear to auscultation, no wheezing or crackles. ABDOMEN: Soft, nontender, nondistended, normoactive bowel sounds. No palpable organomegaly. MUSCULOSKELETAL: No joint swelling or deformity. EXTREMITIES: No cyanosis, clubbing, or pedal edema. -NEUROLOGICAL: Gross neurological examination did not reveal any focal deficits. patient can moves his legs similar to last time while he was lying bed. However they are generally weak. SKIN: No rashes. No petechiae Results CBC & Chem 7: 07/30/19 13:15 07/30/19 13:07 Labs: Abnormal Lab Results - Last 24 Hours (Table) 07/30/19 07/30/19 07/30/19 Range/Units 13:07 13:07 13:15 Neutrophils # 8.2 H (1.3-7.7) k/uL Lymphocytes # 0.5 L (1.0-4.8) k/uL PT 26.8 H (9.0-12.0) sec INR 2.8 H (<1.2) APTT 30.5 H (22.0-30.0) sec Chloride 97 L (98-107) mmol/L Carbon Dioxide 33 H (22-30) mmol/L BUN 30 H (9-20) mg/dL Glucose 129 H (74-99) mg/dL Assessment and Plan Assessment: Fall. Patient fell as he was trying to get out of the car severe spinal stenosis of L3 to L4 and mild spinal stenosis of L4 to L5 Subacute to chronic compression deformities of L3 and L4 low back pain secondary to above, improved Pulmonary fibrosis/atelectasis Hepatic steatosis Hypertension History of coronary artery disease Chronic/paroxysmal atrial fibrillation on Coumadin Hyperlipidemia History of pulmonary embolism on Coumadin Diverticulosis without diverticulitis Plan: this is a pleasant 88 years old male with severe spinal stenosis presents with frequent falls and recurrent falls. Admit to inpatient, consult spine surgeon Dr. Milligan who knows him from last time. Labs and medication were reviewed.. Continue same treatment. Continue with symptomatic treatment. Resume home medication. Monitor lytes and vitals. DVT and GI prophylaxis. Further recommendations of the clinical course of the patient DVT prophylaxis: Subcutaneous heparin GI Prophylaxis: Pepcid PT/OT: Pending Prognosis is guarded
[2019-07-30] MEDS: CALCIUM CARB-VIT D 500MG-200UN 1 EACH TAB PO SCH (17:48)
--- NOTE | 2019-07-30 19:50 | P.CNNES ---
History of Present Illness Consult date: 07/30/19 Requesting physician: Tam Cardona Reason for Consult: Leg weakness, spinal stenosis History of Present Illness: Patient is a 88-year-old male, who states that he fell in the bathroom and shower on gi with significant back pain. Patient was admitted for 4 days. He had an MRI of lumbar spine on 07/26/2016, which revealed compression deformities measuring 50% at L3 and 20% at L4 which appear to be on a subacute to chronic basis. Retropulsion at L2-3 in concert with disc bulging and hypertrophic changes results in severe canal stenosis and bilateral foraminal encroachment. Severe canal stenosis due to disc bulging and hypertrophic changes L3 4 with bilateral foraminal encroachment. Patient was treated with steroids, and sent home, as the pain got better. Patient states that he has been walking with his walker. Yesterday out of blue, he fell 3 times. His legs would give out and he would fall over. Twice he fell while he was using his walker. He denies any loss of consciousness, or head injury. Denies any saddle anesthesia. Therefore he spoke to his orthopedic surgeon, who recommended patient to go to the hospital for transfer to rehab for strengthening of his legs. Patient lives with his , who also has cervical spinal stenosis. Patient's EKG shows normal sinus rhythm with left axis deviation. Chest x-ray showed some basilar atelectasis or scarring. Patient denies any numbness or tingling. Review of Systems Denies headache, problem with vision. He has significant loss of hearing. Complains of some back pain but not significant. Denies any radicular symptoms. Denies any numbness in the central region. Patient does have weakness of the legs. Denies chest pain shortness of breath wheezing or cough. Past Medical History Past Medical History: Atrial Fibrillation, Coronary Artery Disease (CAD), Hyperlipidemia, Hypertension, Pulmonary Embolus (PE) Additional Past Medical History / Comment(s): 2011 PE, diverticulosis History of Any Multi-Drug Resistant Organisms: None Reported Past Surgical History: Heart Catheterization With Stent, Hernia Repair, Tonsillectomy Additional Past Surgical History / Comment(s): colonoscopy, cardioversion Past Anesthesia/Blood Transfusion Reactions: No Reported Reaction Additional Past Anesthesia/Blood Transfusion Reaction / Comment(s): Pt states he has never received blood Date of Last Stent Placement:: 03/06/12 Past Psychological History: No Psychological Hx Reported Smoking Status: Former smoker Past Alcohol Use History: None Reported Past Drug Use History: None Reported - Past Family History Mother Family Medical History: No Reported History Additional Family Medical History / Comment(s): Mother had pulmonary fibrosis. She at age 88yrs. Father Family Medical History: Myocardial Infarction ([place]) Additional Family Medical History / Comment(s): Father of a [place] in his 60's Medications and Allergies Home Medications Medication Instructions Recorded Confirmed Type RX: Atorvastatin [Lipitor] 20 mg PO DAILY 11/10/15 07/30/19 History RX: Metoprolol Tartrate [Lopressor] 50 mg PO BID 12/21/15 07/30/19 History RX: ALPRAZolam [Xanax] 0.25 - 0.5 mg PO DAILY PRN 07/23/19 07/30/19 History RX: Amiodarone [Cordarone] 200 mg PO DAILY 07/23/19 07/30/19 History RX: Furosemide [Lasix] 20 mg PO DAILY 07/23/19 07/30/19 History RX: Hydrochlorothiazide 25 mg PO DAILY 07/23/19 07/30/19 History [Hydrodiuril] RX: Potassium Chloride ER [K-Dur 20 meq PO DAILY 07/23/19 07/30/19 History 20] RX: Valsartan [Diovan] 160 mg PO BID 07/23/19 07/30/19 History RX: Warfarin Sodium [Jantoven] 1.25 mg PO HS 07/23/19 07/30/19 History RX: cloNIDine HCL 0.3 mg PO BID 07/23/19 07/30/19 History Albuterol Sulfate [Proair Hfa] 1 - 2 puff INHALATION RT-Q6H PRN 07/30/19 07/30/19 History RX: Calcium Carb-Vit D 500Mg-200Un 1 tab PO BID-W/MEALS 07/30/19 07/30/19 Histor y [Oscal 500+D] RX: predniSONE See Taper PO DAILY 07/30/19 07/30/19 History Allergies Allergy/AdvReac Type Severity Reaction Status Date / Time No Known Allergies Allergy Verified 07/30/19 13:14 Physical Examination - Vital Signs Vital Signs: Vital Signs Temp Pulse Pulse Resp BP BP Pulse Ox 07/30/19 15:42 97.5 F L 66 16 179/86 94 L 07/30/19 15:07 98 F 07/30/19 15:00 79 16 166/84 94 L 07/30/19 12:20 97.9 F 63 18 183/96 93 L Intake and Output 07/30/19 07/30/19 07/30/19 06:59 14:59 22:59 Output Total 100 Balance -100 Output: Post Void Residual 100 Other: Weight 75.296 kg 75.296 kg On examination patient is an elderly male, in no distress. Patient is alert and awake fully oriented to time place and person. Speech and language functions are normal. He is very hard of hearing and uses hearing aids. Face is symmetric, tongue protrudes the midline. Air. Palatal elevation and sensation normal. Pupils are round and reacting and visual singh are full exc ept muscles are intact. Muscle strength is normal in the arms. In the lower limbs his hip flexion is about 4+ to 5-bilaterally. Hip adduction, abduction, knee extension are normal. Ankle dorsiflexion 5 on the right, 5-left. Strength is normal in the foot inversion and eversion bilaterally. Toe extension is 5- on the right, 4+ left. Reflexes are 2+ in the upper limbs, 2 at the knees, absent ankles and plantars are equivocal. Sensation to touch is equal. No ataxia for [id number] testing. Tone and bulk of muscles normal. Gait deferred. Results - Laboratory Findings CBC and BMP: 07/30/19 13:15 07/30/19 13:07 Abnormal Lab Findings: Abnormal Labs 07/30/19 07/30/19 07/30/19 13:07 13:07 13:15 Neutrophils # 8.2 H Lymphocytes # 0.5 L PT 26.8 H INR 2.8 H APTT 30.5 H Chloride 97 L Carbon Dioxide 33 H BUN 30 H Glucose 129 H Assessment and Plan Assessment: * 88-year-old male, with history of severe lumbar spinal stenosis at L2-3 and L3 4 levels, has been stable, ambulatory with a walker, developed frequent falls since yesterday with leg weakness. Symptoms likely related to spinal stenosi s. At present his examination shows fairly normal strength except for some weakness in the toe extension bilaterally. No evidence of cauda equina at this time. Plan: * Patient to undergo rehabilitation at subacute rehab. * Orthopedic spine consult has been initiated. * Patient does not have significant radicular pain at this time. * I will check B12, folate and hemoglobin A1c. * Please call neurology if any other concerns.
[2019-07-30] MEDS: cloNIDine HCL 0.1 MG TAB PO SCH (19:57)
[2019-07-30] MEDS: METOPROLOL TARTRATE 50 MG TAB PO SCH (19:57)
[2019-07-30] MEDS: VALSARTAN 160 MG TAB PO SCH (19:57)
[2019-07-30] MEDS: WARFARIN 1.25 MG TAB PO SCH (19:58)
[2019-07-31] MEDS: ALPRAZolam 0.5 MG TAB PO PRN ×2 (00:27→23:06)
[2019-07-31 02:15] LABS: Hemoglobin A1C 6.4 % (4.0-6.0)
[2019-07-31 04:24] LABS: Folate, Serum 13.2 ng/mL
[2019-07-31] MEDS: cloNIDine HCL 0.1 MG TAB PO SCH ×2 (07:10→20:05)
[2019-07-31] MEDS: AMIODARONE 200 MG TAB PO SCH (07:10)
[2019-07-31] MEDS: VALSARTAN 160 MG TAB PO SCH ×2 (07:10→20:05)
[2019-07-31] MEDS: FUROSEMIDE 20 MG TAB PO SCH (07:11)
[2019-07-31] MEDS: METOPROLOL TARTRATE 50 MG TAB PO SCH ×2 (07:11→20:06)
[2019-07-31] MEDS: ATORVASTATIN 20 MG TAB PO SCH (07:11)
[2019-07-31] MEDS: POTASSIUM CHLORIDE ER 20 MEQ TAB.ER PO SCH (07:11)
[2019-07-31] MEDS: CALCIUM CARB-VIT D 500MG-200UN 1 EACH TAB PO SCH ×2 (07:11→17:24)
[2019-07-31] MEDS: predniSONE 10 MG TAB PO SCH (07:11)
[2019-07-31] MEDS: HYDROCHLOROTHIAZIDE 25 MG TAB PO SCH (07:11)
[2019-07-31 08:07] LABS: Basophils % (A) 0 %; Eosinophils # (A) 0.1 k/uL (0-0.7); Eosinophils % (A) 1 %; HCT 46.1 % (39.0-53.0); HGB 14.7 gm/dL (13.0-17.5); Lymphocytes # (A) 1.9 k/uL (1.0-4.8); Lymphocytes % (A) 24 %; MCH 29.6 pg (25.0-35.0); MCV 92.7 fL (80.0-100.0); Mean Platelet Volume 7.4; Monocytes # (A) 0.6 k/uL (0-1.0); Monocytes % (A) 7 %; Neutrophils # (A) 5.3 k/uL (1.3-7.7); Neutrophils % (A) 67 %; Platelet Count 291 k/uL (150-450); RBC 4.97 m/uL (4.30-5.90); RDW 13.4 % (11.5-15.5); WBC 7.9 k/uL (3.8-10.6)
[2019-07-31 08:09] LABS: Prothrombin Time 28.7 sec (9.0-12.0)
[2019-07-31 08:22] LABS: Calcium 9.4 mg/dL (8.4-10.2); Potassium 3.4 mmol/L (3.5-5.1)
--- NOTE | 2019-07-31 12:36 | P.CNOR ---
History of Present Illness - [facility] Consult date: 07/31/19 Consult reason: other History of present illness: patient is seen and examined today at bedside. He is a very pleasant 88-year-old gentleman who was just seen with our service one week ago and while here in Hospital. He had severe weakness with ambulation when he is trying to walk around and was having pain in his lower back since . He had a fall on and says that he was having more trouble with ambulating. He was here in the hospital and was found to have compression fractures at L3and L4 with severe spinal stenosis L2-3 and L3 4. All these findings correlated well with his low back and lower extremity symptoms. He was making some benefit here in Hospital with steroid and physical therapy and was improving his safety with his ambulation but when he went home he was unable to maintain this and had multiple falls and returned back to the hospital yesterday. He denies any headaches or loss consciousness. Denies any chest pain shortness of breath. Past Medical History Past Medical History: Atrial Fibrillation, Coronary Artery Disease (CAD), Hyperlipidemia, Hypertension, Pulmonary Embolus (PE) Additional Past Medical History / Comment(s): 2011 PE, diverticulosis History of Any Multi-Drug Resistant Organisms: None Reported Past Surgical History: Heart Catheterization With Stent, Hernia Repair, Tonsillectomy Additional Past Surgical History / Comment(s): colonoscopy, cardioversion Past Anesthesia/Blood Transfusion Reactions: No Reported Reaction Additional Past Anesthesia/Blood Transfusion Reaction / Comm: Pt states he has never received blood Date of Last Stent Placement:: 03/06/12 Past Psychological History: No Psychological Hx Reported Smoking Status: Former smoker Past Alcohol Use History: None Reported Past Drug Use History: None Reported - Past Family History Mother Family Medical History: No Reported History Additional Family Medical History / Comment(s): Mother had pulmonary fibrosis. She at age 88yrs. Father Family Medical History: Myocardial Infarction ([place]) Additional Family Medical History / Comment(s): Father of a [place] in his 60's Medications and Allergies Home Medications Medication Instructions Recorded Confirmed Type Atorvastatin [Lipitor] 20 mg PO DAILY 11/10/15 07/30/19 History Metoprolol Tartrate [Lopressor] 50 mg PO BID 12/21/15 07/30/19 History ALPRAZolam [Xanax] 0.25 - 0.5 mg PO DAILY PRN 07/23/19 07/30/19 History Amiodarone [Cordarone] 200 mg PO DAILY 07/23/19 07/30/19 History Furosemide [Lasix] 20 mg PO DAILY 07/23/19 07/30/19 History Hydrochlorothiazide [Hydrodiuril] 25 mg PO DAILY 07/23/19 07/30/19 History Potassium Chloride ER [K-Dur 20] 20 meq PO DAILY 07/23/19 07/30/19 History Valsartan [Diovan] 160 mg PO BID 07/23/19 07/30/19 History Warfarin Sodium [Jantoven] 1.25 mg PO HS 07/23/19 07/30/19 History cloNIDine HCL 0.3 mg PO BID 07/23/19 07/30/19 History Albuterol Sulfate [Proair Hfa] 1 - 2 puff INHALATION RT-Q6H PRN 07/30/19 07/30/19 History Calcium Carb-Vit D 500Mg-200Un 1 tab PO BID-W/MEALS 07/30/19 07/30/19 History [Oscal 500+D] predniSONE See Taper PO DAILY 07/30/19 07/30/19 History Allergies Allergy/AdvReac Type Severity Reaction Status Date / Time No Known Allergies Allergy Verified 07/30/19 13:14 Physical Examination Osteopathic Statement: *. No significant issues noted on an osteopathic structural exam other than those noted in the History and Physical/Consult. - L Spine: dermatomal strength & reflexes bilateral Strength: hip flexion: 5/5 (his exam is essentially unchanged. He is not really tender at the midline of his back he has some soreness in his paraspinal bilateral lower lobe back and his slow to move around but he is able to get up with his walker and no he is somewhat unsteady on his feet he is able to ablate with his walker with standby assist. He is only able to go short distances out the hallway and back. He has sustained dorsal to plantar flexion and EHL intact.) Results - Labs Labs: Abnormal Lab Results - Last 24 Hours (Table) 07/30/19 07/30/19 07/30/19 Range/Units 13:07 13:07 13:15 Neutrophils # 8.2 H (1.3-7.7) k/uL Lymphocytes # 0.5 L (1.0-4.8) k/uL PT 26.8 H (9.0-12.0) sec INR 2.8 H (<1.2) APTT 30.5 H (22.0-30.0) sec Potassium (3.5-5.1) mmol/L Chloride 97 L (98-107) mmol/L Carbon Dioxide 33 H (22-30) mmol/L BUN 30 H (9-20) mg/dL Glucose 129 H (74-99) mg/dL Hemoglobin A1c (4.0-6.0) % 07/30/19 07/31/19 07/31/19 Range/Units 13:15 07:46 07:46 Neutrophils # (1.3-7.7) k/uL Lymphocytes # (1.0-4.8) k/uL PT 28.7 H (9.0-12.0) sec INR 3.0 H (<1.2) APTT (22.0-30.0) sec Potassium 3.4 L (3.5-5.1) mmol/L Chloride (98-107) mmol/L Carbon Dioxide 34 H (22-30) mmol/L BUN 34 H (9-20) mg/dL Glucose 106 H (74-99) mg/dL Hemoglobin A1c 6.4 H (4.0-6.0) % H & H 07/30/19 07/31/19 Range/Units 13:15 07:46 Hgb 14.9 14.7 (13.0-17.5) gm/dL Hct 45.0 46.1 (39.0-53.0) % Coagulation 07/30/19 07/31/19 Range/Units 13:07 07:46 INR 2.8 H 3.0 H (<1.2) Result Diagrams: 07/31/19 07:46 07/31/19 07:46 Assessment and Plan Assessment: spinal stenosis L23 through L3 4 Neurogenic claudication with difficulty ambulating Vertebral subacute compression fractures L3-L4 Plan: spinal stenosis L23 through L3 4 Neurogenic claudication with difficulty ambulating Vertebral subacute compression fractures L3-L4 the patient was making progress but was not able to maintain his angulation at home and had multiple falls.he has issues due to both his spinal stenosis as well as his compression fractures. With the fracture still being in a process of healing I do not think that we can pursue a surgical intervention for his stenosis without doing a large reconstruction. He needs further healing at the site so that we could consider epidural steroid injections or the possibility of decompressive surgery hopefully without fusion. For the time being in regards to his back. He needs allow the fractures to heal further. We discussed the possibility of kyphoplasty but I would like to continue conservative treatment for now. He will use his LSO brace whenever he is out of bed and continue to mobilize with physical therapy to improve his safety ambulation and endurance. It is okay from a orthopedic spine standpoint for the patient to be transferred to group home or rehab for continued physical therapy on a daily basis as he is not safe on his own at home. He is okay to follow up on an outpatient basis in a [place] 2-3 weeks for recheck evaluation and repeat x-rays. As her fracture continues to heal we could consider other intervention for his spinal s tenosis but that may not be until late August or September to allow good fracture healing. He should continue with his brace and mobilization and conservative management for now. I discussed this with him his brother and his son at bedside and they are agreeable.
--- NOTE | 2019-07-31 14:27 | P.PN ---
Subjective Principal diagnosis: This is a pleasant 68 years old male with past medical history of atrial fibrillation and Coumadin, coronary artery disease, hyperlipidemia, hypertension, pulmonary embolism, diverticulosis.he was recently discharged from the hospital about 3 days ago for a fall secondary to significant spinal stenosis. However patient went home With home health care. this time he presents because of frequent falls. he fell about 4 times yesterday 1 time he fell on his knees, however he denies head trauma. no loss of consci ousness. No other complaints or pain. He is able to move his legs free like last time while he is lying in bed. His PCP was trying to get him to rehab however he was pending insurance authorization and weekend was coming so his PCP advised him to come to the emergency room vital signs stable. CBC is unremarkable, sugars controlled. INR is 2.8 .electrolytes and creatinine are unremarkable. Urine analysis is not suspicious for infection. EKG showing normal sinus rhythm with with QTC 530, no significant ST-T changes. Chest x-ray bilateral basal atelectasis 07/31/2019 Today patient confirms to me that his level of weakness in his lower extremity is similar to when he was in the hospital last time no worsening weakness. No new neurological deficit. Patient is not in pain. Orthopedic input is appreciated. Patient is pending rehab placement mostly on Friday Objective - Vital Signs Vital signs: Vital Signs Temp 98.1 F 07/31/19 14:10 Pulse 66 07/31/19 14:10 Resp 16 07/31/19 14:10 BP 120/64 07/31/19 14:10 Pulse Ox 94 L 07/31/19 14:10 Intake & Output 07/30/19 07/31/19 07/31/19 18:59 06:59 18:59 Intake Total 350 200 Output Total 100 Balance -100 350 200 Weight 75.296 kg Intake: Oral 350 200 Output: Post Void Residual 100 Other: # Voids 1 2 - Exam GENERAL: The patient is alert and oriented x3, not in any acute distress. Well developed, well nourished. HEENT: Pupils are round and equally reacting to light. EOMI. No scleral icterus. No conjunctival pallor. Normocephalic, atraumatic. No pharyngeal erythema. No thyromegaly. CARDIOVASCULAR: S1 and S2 present. No murmurs, rubs, or gallops. PULMONARY: Chest is clear to auscultation, no wheezing or crackles. ABDOMEN: Soft, nontender, nondistended, normoactive bowel sounds. No palpable organomegaly. MUSCULOSKELETAL: No joint swelling or deformity. EXTREMITIES: No cyanosis, clubbing, or pedal edema. -NEUROLOGICAL: Gross neurological examination did not reveal any focal deficits. patient can moves his legs similar to last time while he was lying bed. However they are generally weak. SKIN: No rashes. No petechiae - Labs CBC & Chem 7: 07/31/19 07:46 07/31/19 07:46 Labs: Abnormal Lab Results - Last 24 Hours (Table) 07/30/19 07/31/19 07/31/19 Range/Units 13:15 07:46 07:46 PT 28.7 H (9.0-12.0) sec INR 3.0 H (<1.2) Potassium 3.4 L (3.5-5.1) mmol/L Carbon Dioxide 34 H (22-30) mmol/L BUN 34 H (9-20) mg/dL Glucose 106 H (74-99) mg/dL Hemoglobin A1c 6.4 H (4.0-6.0) % Assessment and Plan Assessment: Fall. Patient fell as he was trying to get out of the car severe spinal stenosis of L3 to L4 and mild spinal stenosis of L4 to L5 Subacute to chronic compression deformities of L3 and L4 low back pain secondary to above, improved Pulmonary fibrosis/atelectasis Hepatic steatosis Hypertension History of coronary artery disease Chronic/paroxysmal atrial fibrillation on Coumadin Hyperlipidemia History of pulmonary embolism on Coumadin Diverticulosis without diverticulitis Plan: this is a pleasant 88 years old male with severe spinal stenosis presents with frequent falls and recurrent falls. Admit to inpatient, consult spine surgeon Dr. Milligan who knows him from last time. Labs and medication were reviewed.. Continue same treatment. Continue with symptomatic treatment. Resume home medication. Monitor lytes and vitals. DVT and GI prophylaxis. Further recommendations of the clinical course of the patient DVT prophylaxis: Subcutaneous heparin GI Prophylaxis: Pepcid PT/OT: Pending Prognosis is guarded
[2019-07-31] MEDS: WARFARIN 1.25 MG TAB PO SCH (20:06)
[2019-08-01 06:21] LABS: INR 2.9 (<1.2); Prothrombin Time 28.4 sec (9.0-12.0)
[2019-08-01 06:36] LABS: Calcium 8.4 mg/dL (8.4-10.2); Magnesium 2.4 mg/dL (1.6-2.3); Potassium 3.4 mmol/L (3.5-5.1)
[2019-08-01] MEDS: cloNIDine HCL 0.1 MG TAB PO SCH (08:13)
[2019-08-01] MEDS: AMIODARONE 200 MG TAB PO SCH (08:13)
[2019-08-01] MEDS: ATORVASTATIN 20 MG TAB PO SCH (08:13)
[2019-08-01] MEDS: HYDROCHLOROTHIAZIDE 25 MG TAB PO SCH (08:14)
[2019-08-01] MEDS: VALSARTAN 160 MG TAB PO SCH ×2 (08:14→20:51)
[2019-08-01] MEDS: CALCIUM CARB-VIT D 500MG-200UN 1 EACH TAB PO SCH ×2 (08:14→17:30)
[2019-08-01] MEDS: predniSONE 10 MG TAB PO SCH (08:14)
[2019-08-01] MEDS: POTASSIUM CHLORIDE ER 20 MEQ TAB.ER PO SCH ×5 (08:14→13:51)
[2019-08-01] MEDS: FUROSEMIDE 20 MG TAB PO SCH (08:14)
[2019-08-01] MEDS: METOPROLOL TARTRATE 50 MG TAB PO SCH ×2 (08:14→20:51)
[2019-08-01] MEDS ORDERED: Potassium Replacement Protocol 1 EACH MISC MISCELLANE PRN (11:22)
--- NOTE | 2019-08-01 17:01 | P.PN ---
Subjective Principal diagnosis: This is a pleasant 68 years old male with past medical history of atrial fibrillation and Coumadin, coronary artery disease, hyperlipidemia, hypertension, pulmonary embolism, diverticulosis.he was recently discharged from the hospital about 3 days ago for a fall secondary to significant spinal stenosis. However patient went home With home health care. this time he presents because of frequent falls. he fell about 4 times yesterday 1 time he fell on his knees, however he denies head trauma. no loss of consci ousness. No other complaints or pain. He is able to move his legs free like last time while he is lying in bed. His PCP was trying to get him to rehab however he was pending insurance authorization and weekend was coming so his PCP advised him to come to the emergency room vital signs stable. CBC is unremarkable, sugars controlled. INR is 2.8 .electrolytes and creatinine are unremarkable. Urine analysis is not suspicious for infection. EKG showing normal sinus rhythm with with QTC 530, no significant ST-T changes. Chest x-ray bilateral basal atelectasis 07/31/2019 Today patient confirms to me that his level of weakness in his lower extremity is similar to when he was in the hospital last time no worsening weakness. No new neurological deficit. Patient is not in pain. Orthopedic input is appreciated. Patient is pending rehab placement mostly on Friday08/01/2019 Patient is going to. This pending placement to rehab for frequent falling related to his severe spinal stenosis.his blood pressure and heart rates , we going to lower the dose of clonidine from 0.3 down to 0.2 milligrams. INR is 2.9 today. Low potassium was replaced Objective - Vital Signs Vital signs: Vital Signs Temp 98.0 F 08/01/19 14:37 Pulse 54 L 08/01/19 14:37 Resp 18 08/01/19 14:37 BP 110/52 08/01/19 14:37 Pulse Ox 93 L 08/01/19 14:37 Intake & Output 07/31/19 08/01/19 08/01/19 18:59 06:59 18:59 Intake Total 200 700 540 Balance 200 700 540 Intake: Oral 200 700 540 Other: # Voids 2 2 2 - Exam GENERAL: The patient is alert and oriented x3, not in any acute distress. Well developed, well nourished. HEENT: Pupils are round and equally reacting to light. EOMI. No scleral icterus. No conjunctival pallor. Normocephalic, atraumatic. No pharyngeal erythema. No thyromegaly. CARDIOVASCULAR: S1 and S2 present. No murmurs, rubs, or gallops. PULMONARY: Chest is clear to auscultation, no wheezing or crackles. ABDOMEN: Soft, nontender, nondistended, normoactive bowel sounds. No palpable organomegaly. MUSCULOSKELETAL: No joint swelling or deformity. EXTREMITIES: No cyanosis, clubbing, or pedal edema. -NEUROLOGICAL: Gross neurological examination did not reveal any focal deficits. patient can moves his legs similar to last time while he was lying bed. However they are generally weak. SKIN: No rashes. No petechiae - Labs CBC & Chem 7: 07/31/19 07:46 08/01/19 14:51 Labs: Abnormal Lab Results - Last 24 Hours (Table) 08/01/19 08/01/19 Range/Units 05:39 05:39 PT 28.4 H (9.0-12.0) sec INR 2.9 H (<1.2) Potassium 3.4 L (3.5-5.1) mmol/L Carbon Dioxide 33 H (22-30) mmol/L BUN 37 H (9-20) mg/dL Magnesium 2.4 H (1.6-2.3) mg/dL Assessment and Plan Assessment: Fall. Patient fell as he was trying to get out of the car severe spinal stenosis of L3 to L4 and mild spinal stenosis of L4 to L5 Subacute to chronic compression deformities of L3 and L4 low back pain secondary to above, improved Pulmonary fibrosis/atelectasis Hepatic steatosis Hypertension History of coronary artery disease Chronic/paroxysmal atrial fibrillation on Coumadin Hyperlipidemia History of pulmonary embolism on Coumadin Diverticulosis without diverticulitis Plan: this is a pleasant 88 years old male with severe spinal stenosis presents with frequent falls and recurrent falls. Admit to inpatient, consult spine surgeon Dr. Milligan who knows him from last time. Labs and medication were reviewed.. Continue same treatment. Continue with symptomatic treatment. Resume home medication. Monitor lytes and vitals. DVT and GI prophylaxis. Further recommendations of the clinical course of the patient DVT prophylaxis: Subcutaneous heparin GI Prophylaxis: Pepcid PT/OT: Pending Prognosis is guarded
[2019-08-01] MEDS: WARFARIN 1.25 MG TAB PO SCH (20:51)
[2019-08-01] MEDS: cloNIDine HCL 0.2 MG TAB PO SCH (20:51)
[2019-08-01] MEDS: ALPRAZolam 0.5 MG TAB PO PRN (22:22)
[2019-08-02] MEDS: POTASSIUM CHLORIDE ER 20 MEQ TAB.ER PO SCH (07:25)
[2019-08-02] MEDS: predniSONE 10 MG TAB PO SCH (07:26)
[2019-08-02] MEDS: AMIODARONE 200 MG TAB PO SCH (07:26)
[2019-08-02] MEDS: METOPROLOL TARTRATE 50 MG TAB PO SCH ×2 (07:26→21:12)
[2019-08-02] MEDS: HYDROCHLOROTHIAZIDE 25 MG TAB PO SCH (07:26)
[2019-08-02] MEDS: FUROSEMIDE 20 MG TAB PO SCH (07:26)
[2019-08-02] MEDS: cloNIDine HCL 0.2 MG TAB PO SCH ×2 (07:26→21:12)
[2019-08-02] MEDS: ATORVASTATIN 20 MG TAB PO SCH (07:27)
[2019-08-02] MEDS: CALCIUM CARB-VIT D 500MG-200UN 1 EACH TAB PO SCH ×2 (07:27→16:55)
[2019-08-02] MEDS: VALSARTAN 160 MG TAB PO SCH ×2 (07:28→21:12)
[2019-08-02 07:31] LABS: INR 3.3 (<1.2); Prothrombin Time 31.9 sec (9.0-12.0)
[2019-08-02] MEDS ORDERED: WARFARIN 0.5 MG TAB PO SCH (21:00)
[2019-08-02] MEDS: ALPRAZolam 0.5 MG TAB PO PRN (22:42)
[2019-08-03 06:25] VITALS: BP 154/82; PULSE 54; RESP 16; TEMP 97.5
--- NOTE | 2019-08-03 07:39 | P.PN ---
Subjective Progress Note Date: 08/02/19 Principal diagnosis: This is a pleasant 68 years old male with past medical history of atrial fibrillation and Coumadin, coronary artery disease, hyperlipidemia, hypertension, pulmonary embolism, diverticulosis.he was recently discharged from the hospital about 3 days ago for a fall secondary to significant spinal stenosis. However patient went home With home health care. this time he presents because of frequent falls. he fell about 4 times yesterday 1 time he fell on his knees, however he denies head trauma. no loss of consciousness. No other complaints or pain. He is able to move his legs free like last time while he is lying in bed. His PCP was trying to get him to rehab however he was pending insurance authorization and weekend was coming so his PCP advised him to come to the emergency room vital signs stable. CBC is unremarkable, sugars controlled. INR is 2.8 .electrolytes and creatinine are unremarkable. Urine analysis is not suspicious for infection. EKG showing normal sinus rhythm with with QTC 530, no significant ST-T changes. Chest x-ray bilateral basal atelectasis 07/31/2019 Today patient confirms to me that his level of weakness in his lower extremity is similar to when he was in the hospital last time no worsening weakness. No new neurological deficit. Patient is not in pain. Orthopedic input is appreciated. Patient is pending rehab placement mostly on Friday08/01/2019 Patient is going to. This pending placement to rehab for frequent falling related to his severe spinal stenosis.his blood pressure and heart rates , we go ing to lower the dose of clonidine from 0.3 down to 0.2 milligrams. INR is 2.9 today. Low potassium was replaced 08/02/2019 Patient is sitting up in the chair and appears to be in no acute distress. Patient is awaiting authorization for placement at [facility] for continued PT/OT therapy due to a recent increase in falls and gait dysfunction at home. Blood pressure is being maintained on Catapres 0.2mg and tolerating well. INR is 3.3 today and Coumadin will be held. Will repeat INR in the morning. PT/OT following. Social work is following. Objective - Vital Signs Vital signs: Vital Signs Temp 98.1 F 08/02/19 15:00 Pulse 64 08/02/19 15:00 Resp 15 08/02/19 16:00 BP 142/74 08/02/19 15:00 Pulse Ox 96 08/02/19 15:00 Intake & Output 08/02/19 08/02/19 08/03/19 06:59 18:59 06:59 Intake Total 1010 Output Total 400 250 Balance -400 760 Intake: Oral 1010 Output: Urine 400 250 Other: Voiding Method Toilet Urinal # Voids 4 # Bowel Movements 1 - Exam GENERAL: The patient is alert and oriented x3, not in any acute distress. Well developed, well nourished. Temp is 98.1, pulse is 64, resp are 15, blood pressure is 142/74, 02 is 96 % on room air. HEENT: Pupils are round and equally reacting to light. EOMI. No scleral icterus. No conjunctival pallor. Normocephalic, atraumatic. No pharyngeal erythema. No thyromegaly. CARDIOVASCULAR: S1 and S2 present. No murmurs, rubs, or gallops. PULMONARY: Chest is clear to auscultation, no wheezing or crackles. ABDOMEN: Soft, nontender, nondistended, normoactive bowel sounds. No palpable organomegaly. MUSCULOSKELETAL: No joint swelling or deformity. EXTREMITIES: No cyanosis, clubbing, or pedal edema. -NEUROLOGICAL: Gross neurological examination did not reveal any focal deficits. patient can moves his legs similar to last time while he was lying bed. However they are generally weak. SKIN: No rashes. No petechiae - Labs CBC & Chem 7: 07/31/19 07:46 08/01/19 14:51 Labs: Abnormal Lab Results - Last 24 Hours (Table) 08/02/19 Range/Units 07:00 PT 31.9 H (9.0-12.0) sec INR 3.3 H (<1.2) Assessment and Plan Assessment: Fall. Patient fell as he was trying to get out of the car severe spinal stenosis of L3 to L4 and mild spinal stenosis of L4 to L5 Subacute to chronic compression deformities of L3 and L4 low back pain secondary to above, improved Pulmonary fibrosis/atelectasis Hepatic steatosis Hypertension History of coronary artery disease Chronic/paroxysmal atrial fibrillation on Coumadin Hyperlipidemia History of pulmonary embolism on Coumadin Diverticulosis without diverticulitis DVT prophylaxis: Subcutaneous heparin GI Prophylaxis: Pepcid Plan: Recommend to continue current medications, management, and symptomatic treatment. Holding coumadin this evening as the INR is 3.3. Will repeat am labs. Will continue to monitor vital signs and labs closely. Prognosis is guarded. Further recommendations to follow. Possible discharge in 24-48 hours once authorization is obtained for [facility] [place] for continued PT/OT therapy.
[2019-08-03 08:34] LABS: INR 3.1 (<1.2); Prothrombin Time 29.5 sec (9.0-12.0)
[2019-08-03] MEDS: predniSONE 10 MG TAB PO SCH (09:09)
[2019-08-03] MEDS: HYDROCHLOROTHIAZIDE 25 MG TAB PO SCH (09:09)
[2019-08-03] MEDS: CALCIUM CARB-VIT D 500MG-200UN 1 EACH TAB PO SCH (09:09)
[2019-08-03] MEDS: POTASSIUM CHLORIDE ER 20 MEQ TAB.ER PO SCH (09:09)
[2019-08-03] MEDS: cloNIDine HCL 0.2 MG TAB PO SCH (09:09)
[2019-08-03] MEDS: AMIODARONE 200 MG TAB PO SCH (09:09)
[2019-08-03] MEDS: METOPROLOL TARTRATE 50 MG TAB PO SCH (09:09)
[2019-08-03] MEDS: ATORVASTATIN 20 MG TAB PO SCH (09:09)
[2019-08-03] MEDS: FUROSEMIDE 20 MG TAB PO SCH (09:09)
[2019-08-03] MEDS: VALSARTAN 160 MG TAB PO SCH (09:10)
--- NOTE | 2019-08-03 10:11 | P.DS ---
Providers Date of admission: 08/01/19 08:23 Attending physician: Severiano Madera MD Consults: 07/30/19 13:57 Consult Physician Urgent Consulting Provider: Shirley Crockett Consult Reason/Comments: Leg weakness, spinal stenosis Do you want consulting provider notified?: Yes 07/30/19 16:06 Consult Physician Urgent Consulting Provider: Lisa Milligan Consult Reason/Comments: spinal stenosis, known Do you want consulting provider notified?: Yes Primary care physician: Noman Nielson MD Hospital Course: final diagnoses Severe spinal stenosis L3 to 4 and mild spinal stenosis L3 L4 to 5 Fall and gait dysfunction Subacute chronic compression deformities L3 4 system of back pain intractable Pulmonary fibrosis atelectasis Hepatic steatosis n hypertension CAD paroxysmal atrial fibrillation, Coumadin monitoring Hyperlipidemia Pulmonary embolism on Coumadin diverticulosis and diverticulitis Discharge disposition The patient be discharged in a stable condition with a guarded prognosis to ECF. Total time taken 35 minutes. History of present illness This 88-year-old gentleman with a past medical history of multiple medical problems was admitted with the severe low back pain. Spinal stenosis noted. Treated symptomatically. PTOT waswas consulted. Gait dysfunction was monitored. PT/INR was monitored. She'll be discharged in a stable condition with guarded prognosis to ECF at this time. Recommended close follow-up follow-up with Dr. Nielson in the outpatient setting after discharge from ECF. Please service C the medication RECONCILIATION sheet for further information. Coumadin dose was red uced to 1 mg by mouth daily. Patient Condition at Discharge: Fair Plan - Discharge Summary Discharge Rx Participant: No New Discharge Prescriptions: New Warfarin Sodium [Coumadin] 1 mg PO DAILY #1 tablet Continue Atorvastatin [Lipitor] 20 mg PO DAILY Metoprolol Tartrate [Lopressor] 50 mg PO BID Potassium Chloride ER [K-Dur 20] 20 meq PO DAILY ALPRAZolam [Xanax] 0.25 - 0.5 mg PO DAILY PRN PRN Reason: Anxiety Hydrochlorothiazide [Hydrodiuril] 25 mg PO DAILY cloNIDine HCL 0.3 mg PO BID Furosemide [Lasix] 20 mg PO DAILY Amiodarone [Cordarone] 200 mg PO DAILY Valsartan [Diovan] 160 mg PO BID Albuterol Sulfate [Proair Hfa] 1 - 2 puff INHALATION RT-Q6H PRN PRN Reason: Shortness Of Breath predniSONE See Taper PO DAILY Calcium Carb-Vit D 500Mg-200Un [Oscal 500+D] 1 tab PO BID-W/MEALS Discontinued Warfarin Sodium [Jantoven] 1.25 mg PO HS Discharge Medication List Atorvastatin [Lipitor] 20 mg PO DAILY 11/10/15 [History] Metoprolol Tartrate [Lopressor] 50 mg PO BID 12/21/15 [History] ALPRAZolam [Xanax] 0.25 - 0.5 mg PO DAILY PRN 07/23/19 [History] Amiodarone [Cordarone] 200 mg PO DAILY 07/23/19 [History] Furosemide [Lasix] 20 mg PO DAILY 07/23/19 [History] Hydrochlorothiazide [Hydrodiuril] 25 mg PO DAILY 07/23/19 [History] Potassium Chloride ER [K-Dur 20] 20 meq PO DAILY 07/23/19 [History] Valsartan [Diovan] 160 mg PO BID 07/23/19 [History] cloNIDine HCL 0.3 mg PO BID 07/23/19 [History] Albuterol Sulfate [Proair Hfa] 1 - 2 puff INHALATION RT-Q6H PRN 07/30/19 [History] Calcium Carb-Vit D 500Mg-200Un [Oscal 500+D] 1 tab PO BID-W/MEALS 07/30/19 [History] predniSONE See Taper PO DAILY 07/30/19 [History] Warfarin Sodium [Coumadin] 1 mg PO DAILY #1 tablet 08/03/19 [Rx] Follow up Appointment(s)/Referral(s): Lisa Milligan DO [Doctor of Osteopathic Medicine] - 3 Weeks (Patient may follow-up with Noman Hinds PA-C or Dr. Justin Milligan at [facility] in 2-3 weeks following discharge. ) Noman Nielson MD [Primary Care Provider] - 1-2 days Patient Instructions/Handouts: Fall Prevention (DC) Activity/Diet/Wound Care/Special Instructions: diet cardiac Activity Limited until follow Daily PT/INR
[2019-08-03] MEDS ORDERED: WARFARIN 0.5 MG TAB PO ONE (18:00)
== END 2019-08-03 12:00 | DRG 552 ==
LOC: EC 12:01 → 4MS4W 13:57 → 6NMEDSUR 08-01 07:45 → OBSVTOIN 08-01 08:23
PROVIDERS: ADMIT Internal Medicine; ATTEND Internal Medicine
DX: M48.062 Spinal stenosis, lumbar region with neurogenic claudication (principal); M48.56XA Collapsed vertebra, not elsewhere classified, lumbar region, initial encounter for fracture; J98.11 Atelectasis; K57.92 Diverticulitis of intestine, part unspecified, without perforation or abscess without bleeding; I48.20 Chronic atrial fibrillation, unspecified; E78.5 Hyperlipidemia, unspecified; I10 Essential (primary) hypertension; I25.10 Atherosclerotic heart disease of native coronary artery without angina pectoris; I45.10 Unspecified right bundle-branch block; J84.10 Pulmonary fibrosis, unspecified; K76.0 Fatty (change of) liver, not elsewhere classified; R29.6 Repeated falls; Z79.01 Long term (current) use of anticoagulants; Z79.899 Other long term (current) drug therapy; Z82.49 Family history of ischemic heart disease and other diseases of the circulatory system; Z86.711 Personal history of pulmonary embolism; Z87.891 Personal history of nicotine dependence; Z95.5 Presence of coronary angioplasty implant and graft; Z98.890 Other specified postprocedural states; Z90.89 Acquired absence of other organs
CPT/HCPCS: 36415; 71046; 80048; 80053; 81003; 82607; 82746; 83036; 83605; 83735; 84132; 84443; 84484; 85025; 85610; 85730; 93005; 94760; 99285

== ENCOUNTER 2020-05-28 10:09 | Emergency (ER) | payer MEDICARE ==
--- NOTE | 2020-05-28 10:50 | ED ---
URI HPI - General Chief Complaint: Upper Respiratory Infection Stated Complaint: Chills,fever,coughing up blood Time Seen by Provider: 05/28/20 10:24 Source: patient, RN notes reviewed Mode of arrival: wheelchair Limitations: no limitations - History of Present Illness Initial Comments: This is a 89-year-old male with a history of A. fib who is on blood thinners who states he had the onset 3 days ago fever and chills lasted for several hours this resolved and yesterday started coughing up some blood. He's not coughed up any blood today he does not have any chest pain from his breath no fevers chills or sweats at this time. No other modifying factors MD Complaint: fever, cough - Related Data Home Medications Medication Instructions Recorded Confirmed Atorvastatin [Lipitor] 20 mg PO DAILY 11/10/15 07/30/19 Metoprolol Tartrate [Lopressor] 50 mg PO BID 12/21/15 07/30/19 ALPRAZolam [Xanax] 0.25 - 0.5 mg PO DAILY PRN 07/23/19 07/30/19 Amiodarone [Cordarone] 200 mg PO DAILY 07/23/19 07/30/19 Furosemide [Lasix] 20 mg PO DAILY 07/23/19 07/30/19 Potassium Chloride ER [K-Dur 20] 20 meq PO DAILY 07/23/19 07/30/19 Valsartan [Diovan] 160 mg PO BID 07/23/19 07/30/19 cloNIDine HCL 0.3 mg PO BID 07/23/19 07/30/19 hydroCHLOROthiazide [Hydrodiuril] 25 mg PO DAILY 07/23/19 07/30/19 Albuterol Sulfate [Proair Hfa] 1 - 2 puff INHALATION RT-Q6H PRN 07/30/19 07/30/19 Calcium Carb-Vit D 500Mg-200Un 1 tab PO BID-W/MEALS 07/30/19 07/30/19 [Oscal 500+D] predniSONE See Taper PO DAILY 07/30/19 07/30/19 Previous Rx's Medication Instructions Recorded Warfarin Sodium [Coumadin] 1 mg PO DAILY #1 tablet 08/03/19 Allergies Allergy/AdvReac Type Severity Reaction Status Date / Time No Known Allergies Allergy Verified 05/28/20 10:20 Review of Systems ROS Statement: Those systems with pertinent positive or pertinent negative responses have been documented in the HPI. ROS Other: All systems not noted in ROS Statement are negative. Past Medical History Past Medical History: Atrial Fibrillation, Coronary Artery Disease (CAD), Hyperlipidemia, Hypertension, Pulmonary Embolus (PE) Additional Past Medical History / Comment(s): 2011 PE, diverticulosis History of Any Multi-Drug Resistant Organisms: None Reported Past Surgical History: Heart Catheterization With Stent, Hernia Repair, Tonsillectomy Additional Past Surgical History / Comment(s): colonoscopy, cardioversion Past Anesthesia/Blood Transfusion Reactions: No Reported Reaction Additional Past Anesthesia/Blood Transfusion Reaction / Comment(s): Pt states he has never received blood Date of Last Stent Placement:: 03/06/12 Past Psychological History: No Psychological Hx Reported Smoking Status: Never smoker Past Alcohol Use History: None Reported Past Drug Use History: None Reported - Past Family History Mother Family Medical History: No Reported History Additional Family Medical History / Comment(s): Mother had pulmonary fibrosis. She at age 88yrs. Father Family Medical History: Myocardial Infarction (ND) Additional Family Medical History / Comment(s): Father of a ND in his 60's General Exam - General Exam Comments Initial Comments: This a well-developed well-nourished awake alert oriented times 3 male Limitations: no limitations General appearance: alert, in no apparent distress Head exam: Present: atraumatic, normocephalic, normal inspection Eye exam: Present: normal appearance, PERRL, EOMI. Absent: scleral icterus, conjunctival injection, periorbital swelling ENT exam: Present: normal exam, mucous membranes moist Neck exam: Present: normal inspection. Absent: tenderness, meningismus, lymphadenopathy Respiratory exam: Present: normal lung sounds bilaterally. Absent: respiratory distress, wheezes, rales, rhonchi, stridor Cardiovascular Exam: Present: regular rate, normal rhythm, normal heart sounds. Absent: systolic murmur, diastolic murmur, rubs, gallop, clicks GI/Abdominal exam: Present: soft, normal bowel sounds. Absent: distended, tenderness, guarding, rebound, rigid Extremities exam: Present: normal inspection, full ROM, normal capillary refill. Absent: tenderness, pedal edema, joint swelling, calf tenderness Back exam: Present: normal inspection Neurological exam: Present: alert, oriented X3, CN II-XII intact Psychiatric exam: Present: normal affect, normal mood Skin exam: Present: warm, dry, intact, normal color. Absent: rash Course Vital Signs 05/28/20 05/28/20 10:17 12:02 Temperature 98.5 F 98.2 F Pulse Rate 64 52 L Respiratory 16 17 Rate Blood Pressure 126/70 121/76 O2 Sat by Pulse 97 97 Oximetry Medical Decision Making - Medical Decision Making Reevaluation patient no further symptoms he said no hemoptysis today. He will be discharged CT shows no definite cause his INR is within therapeutic range. Patient be discharged with follow-up with his doctor we did discuss return parameters. - Lab Data Result diagrams: 05/28/20 10:43 05/28/20 10:43 Lab Results 05/28/20 05/28/20 05/28/20 Range/Units 10:43 10:43 10:43 WBC 7.3 (3.8-10.6) k/uL RBC 4.33 (4.30-5.90) m/uL Hgb 12.9 L (13.0-17.5) gm/dL Hct 40.7 (39.0-53.0) % MCV 94.0 (80.0-100.0) fL MCH 29.9 (25.0-35.0) pg MCHC 31.8 (31.0-37.0) g/dL RDW 13.0 (11.5-15.5) % Plt Count 234 (150-450) k/uL Neutrophils % 82 % Lymphocytes % 10 % Monocytes % 5 % Eosinophils % 2 % Basophils % 0 % Neutrophils # 6.0 (1.3-7.7) k/uL Lymphocytes # 0.7 L (1.0-4.8) k/uL Monocytes # 0.4 (0-1.0) k/uL Eosinophils # 0.1 (0-0.7) k/uL Basophils # 0.0 (0-0.2) k/uL PT 21.5 H (9.0-12.0) sec INR 2.2 H (<1.2) APTT 32.5 H (22.0-30.0) sec Sodium 140 (137-145) mmol/L Potassium 3.8 (3.5-5.1) mmol/L Chloride 106 (98-107) mmol/L Carbon Dioxide 22 (22-30) mmol/L Anion Gap 12 mmol/L BUN 24 H (9-20) mg/dL Creatinine 1.18 (0.66-1.25) mg/dL Est GFR (CKD-EPI)AfAm 64 (>60 ml/min/1.73 sqM) Est GFR (CKD-EPI)NonAf 55 (>60 ml/min/1.73 sqM) Glucose 132 H (74-99) mg/dL Lactic Ac Sepsis Rflx Plasma Lactic Acid John (0.7-2.0) mmol/L Calcium 9.3 (8.4-10.2) mg/dL Magnesium 2.1 (1.6-2.3) mg/dL Total Bilirubin 0.9 (0.2-1.3) mg/dL AST 31 (17-59) U/L ALT 20 (4-49) U/L Alkaline Phosphatase 57 (38-126) U/L CK-MB (CK-2) (0.0-2.4) ng/mL Troponin I (0.000-0.034) ng/mL NT-Pro-B Natriuret Pep pg/mL Total Protein 6.4 (6.3-8.2) g/dL Albumin 3.8 (3.5-5.0) g/dL 05/28/20 05/28/20 05/28/20 Range/Units 10:43 10:43 10:43 WBC (3.8-10.6) k/uL RBC (4.30-5.90) m/uL Hgb (13.0-17.5) gm/dL Hct (39.0-53.0) % MCV (80.0-100.0) fL MCH (25.0-35.0) pg MCHC (31.0-37.0) g/dL RDW (11.5-15.5) % Plt Count (150-450) k/uL Neutrophils % % Lymphocytes % % Monocytes % % Eosinophils % % Basophils % % Neutrophils # (1.3-7.7) k/uL Lymphocytes # (1.0-4.8) k/uL Monocytes # (0-1.0) k/uL Eosinophils # (0-0.7) k/uL Basophils # (0-0.2) k/uL PT (9.0-12.0) sec INR (<1.2) APTT (22.0-30.0) sec Sodium (137-145) mmol/L Potassium (3.5-5.1) mmol/L Chloride (98-107) mmol/L Carbon Dioxide (22-30) mmol/L Anion Gap mmol/L BUN (9-20) mg/dL Creatinine (0.66-1.25) mg/dL Est GFR (CKD-EPI)AfAm (>60 ml/min/1.73 sqM) Est GFR (CKD-EPI)NonAf (>60 ml/min/1.73 sqM) Glucose (74-99) mg/dL Lactic Ac Sepsis Rflx Plasma Lactic Acid John 2.2 H* (0.7-2.0) mmol/L Calcium (8.4-10.2) mg/dL Magnesium (1.6-2.3) mg/dL Total Bilirubin (0.2-1.3) mg/dL AST (17-59) U/L ALT (4-49) U/L Alkaline Phosphatase (38-126) U/L CK-MB (CK-2) 2.0 (0.0-2.4) ng/mL Troponin I <0.012 (0.000-0.034) ng/mL NT-Pro-B Natriuret Pep 890 pg/mL Total Protein (6.3-8.2) g/dL Albumin (3.5-5.0) g/dL 05/28/20 Range/Units 11:10 WBC (3.8-10.6) k/uL RBC (4.30-5.90) m/uL Hgb (13.0-17.5) gm/dL Hct (39.0-53.0) % MCV (80.0-100.0) fL MCH (25.0-35.0) pg MCHC (31.0-37.0) g/dL RDW (11.5-15.5) % Plt Count (150-450) k/uL Neutrophils % % Lymphocytes % % Monocytes % % Eosinophils % % Basophils % % Neutrophils # (1.3-7.7) k/uL Lymphocytes # (1.0-4.8) k/uL Monocytes # (0-1.0) k/uL Eosinophils # (0-0.7) k/uL Basophils # (0-0.2) k/uL PT (9.0-12.0) sec INR (<1.2) APTT (22.0-30.0) sec Sodium (137-145) mmol/L Potassium (3.5-5.1) mmol/L Chloride (98-107) mmol/L Carbon Dioxide (22-30) mmol/L Anion Gap mmol/L BUN (9-20) mg/dL Creatinine (0.66-1.25) mg/dL Est GFR (CKD-EPI)AfAm (>60 ml/min/1.73 sqM) Est GFR (CKD-EPI)NonAf (>60 ml/min/1.73 sqM) Glucose (74-99) mg/dL Lactic Ac Sepsis Rflx Y Plasma Lactic Acid John (0.7-2.0) mmol/L Calcium (8.4-10.2) mg/dL Magnesium (1.6-2.3) mg/dL Total Bilirubin (0.2-1.3) mg/dL AST (17-59) U/L ALT (4-49) U/L Alkaline Phosphatase (38-126) U/L CK-MB (CK-2) (0.0-2.4) ng/mL Troponin I (0.000-0.034) ng/mL NT-Pro-B Natriuret Pep pg/mL Total Protein (6.3-8.2) g/dL Albumin (3.5-5.0) g/dL - EKG Data -: EKG Interpreted by Me EKG shows normal: sinus rhythm EKG Comments: Sinus bradycardia rate of 58. Interval 194 QRS duration 114 QT since QTC 480/471 - Radiology Data Radiology results: report reviewed (I did review the imaging and report no evidence of acute findings there is some evidence of atelectasis no evidence of PE.), image reviewed Disposition Clinical Impression: Hemoptysis Disposition: HOME SELF-CARE Condition: Good Instructions (If sedation given, give patient instructions): Hemoptysis (ED) Is patient prescribed a controlled substance at d/c from ED?: No Referrals: Noman Nielson MD [Primary Care Provider] - 1-2 days
[2020-05-28 11:00] LABS: Basophils % (A) 0 %; Eosinophils # (A) 0.1 k/uL (0-0.7); Eosinophils % (A) 2 %; HCT 40.7 % (39.0-53.0); HGB 12.9 gm/dL (13.0-17.5); Lymphocytes # (A) 0.7 k/uL (1.0-4.8); Lymphocytes % (A) 10 %; MCH 29.9 pg (25.0-35.0); MCHC 31.8 g/dL (31.0-37.0); Mean Platelet Volume 7.2; Monocytes # (A) 0.4 k/uL (0-1.0); Monocytes % (A) 5 %; Neutrophils % (A) 82 %; Platelet Count 234 k/uL (150-450); RBC 4.33 m/uL (4.30-5.90); WBC 7.3 k/uL (3.8-10.6)
[2020-05-28 11:01] LABS: Albumin 3.8 g/dL (3.5-5.0); Calcium 9.3 mg/dL (8.4-10.2); Magnesium 2.1 mg/dL (1.6-2.3); Potassium 3.8 mmol/L (3.5-5.1); Total Bilirubin 0.9 mg/dL (0.2-1.3); Total Protein 6.4 g/dL (6.3-8.2)
[2020-05-28 11:13] LABS: Troponin I <0.012 ng/mL (0.000-0.034)
--- NOTE | 2020-05-28 11:18 | XR ---
EXAMINATION TYPE: XR chest 2V DATE OF EXAM: 05/28/2020 COMPARISON: 07/30/2019. HISTORY: "Coughing up blood". TECHNIQUE: Frontal and lateral views of the chest are obtained. FINDINGS: There are mild bibasilar streaky opacities. No pleural effusion, or pneumothorax seen. Th e cardiac silhouette size is within normal limits. The osseous structures are intact. IMPRESSION: Mild bibasilar streaky opacities may represent atelectasis or developing infiltrates.
[2020-05-28 11:28] LABS: INR 2.2 (<1.2); Partial Thromboplastin Time 32.5 sec (22.0-30.0); Prothrombin Time 21.5 sec (9.0-12.0)
[2020-05-28] MEDS ORDERED: SODIUM CHLORIDE 0.9% 500 ML 500 ML IV STA (11:55)
[2020-05-28 12:04] VITALS: RESP 17; TEMP 98.2
--- NOTE | 2020-05-28 12:58 | CT ---
EXAMINATION TYPE: CT angio chest DATE OF EXAM: 05/28/2020 12:41 PM COMPARISON: Same day radiograph. HISTORY: Coughing up blood CT DLP: 335.1 mGycm Automated exposure control for dose reduction was used. CONTRAST: CTA scan of the thorax is performed with IV Contrast, patient injected with 68 mL of Isovue 370, pulm onary embolism protocol. FINDINGS: LUNGS: There are small hazy and streaky opacities in the dependent bilateral lower lobes, right middl e lobe and lingula. There is no significant consolidation, suspicious pulmonary nodule, pleural effus ion or pneumothorax. MEDIASTINUM: There is satisfactory enhancement of the pulmonary artery and its branches, there is no CT evidence for pulmonary embolism. There are no greater than 1 cm hilar or mediastinal lymph nodes. No pericardial effusion is seen. OTHER: No additional significant abnormality is seen. IMPRESSION: No evidence of PE. Mild bibasilar opacities suggestive of atelectasis/aspiration changes.
[2020-05-28 14:22] VITALS: BP 175/93; PULSE 51
== END 2020-05-28 14:26 | disposition home or self-care (01) ==
LOC: EC 10:09
DX: R04.2 Hemoptysis (principal); R50.9 Fever, unspecified; I48.91 Unspecified atrial fibrillation; I25.10 Atherosclerotic heart disease of native coronary artery without angina pectoris; E78.5 Hyperlipidemia, unspecified; I10 Essential (primary) hypertension; Z79.899 Other long term (current) drug therapy; Z79.01 Long term (current) use of anticoagulants; Z79.52 Long term (current) use of systemic steroids; Z95.5 Presence of coronary angioplasty implant and graft; Z98.890 Other specified postprocedural states; Z86.711 Personal history of pulmonary embolism; Z87.19 Personal history of other diseases of the digestive system
CPT/HCPCS: 36415; 93005; 83880; 80053; 82553; 83605; 83735; 84484; 85025; 85610; 85730; 87040; 71046; 71275; 99284; 96360; Q9967

== ENCOUNTER 2021-10-26 06:33 | Day surgery (SDC) | payer MEDICARE ==
[2021-10-25 09:52] VITALS: BMI 23.5
[~2021-10-26 06:33] MED LIST: SODIUM CHLORIDE 0.9% 1,000 ML IV SCH
[2021-10-26] MEDS ORDERED: SODIUM CHLORIDE 0.9% 500 ML 500 ML IV ONE (06:41)
[2021-10-26 07:08] VITALS: TEMP 98.6
[2021-10-26] MEDS ORDERED: METOPROLOL TARTRATE 25 MG TAB PO STA (07:14)
[2021-10-26] MEDS ORDERED: cloNIDine HCL 0.1 MG TAB PO STA (07:14)
[2021-10-26] MEDS ORDERED: LOSARTAN 50 MG TAB PO STA (07:14)
[2021-10-26] MEDS ORDERED: hydroCHLOROthiazide 25 MG TAB PO STA (07:17)
[2021-10-26] MEDS ORDERED: NITROGLYCERIN SL TABS 0.4 MG TAB SUBLINGUAL ONE ×2 (07:22→07:55)
[2021-10-26] MEDS ORDERED: NITROGLYCERIN SL TABS 0.4 MG TAB SUBLINGUAL STA (07:25)
[2021-10-26 07:31] LABS: Calcium 9.4 mg/dL (8.4-10.2); Potassium 3.3 mmol/L (3.5-5.1)
[2021-10-26 07:33] LABS: INR 2.9 (<1.2); Prothrombin Time 28.9 sec (9.0-12.0)
[2021-10-26] MEDS ORDERED: PROPOFOL 10 MG/ML 20 ML VIAL IV ONE (07:43)
[2021-10-26] MEDS ORDERED: LIDOCAINE 1% INJ 10MG/ML (20 ML MDV) ONE (07:43)
[2021-10-26] MEDS ORDERED: IV FLUID CONTINUATION 500 ML IV ONE (08:08)
--- NOTE | 2021-10-26 09:03 | PCN ---
PROCEDURE NOTE DATE OF SERVICE: 10/26/2021. PROCEDURE: Electrical cardioversion. INDICATION: Persistent atrial fibrillation, unresponsive to pharmacological efforts. CLINICAL INFORMATION: Mr. He Barajas is an 89-year-old gentleman with a history of persistent atrial fibrillation which was actually paroxysmal and continued to persist in spite of pharmacological efforts. He also has CAD, prior PCI, hypertension, hyperlipidemia. He was brought in for the procedure electively after optimal anticoagulation with INR of 2.2. PROCEDURE NOTE: Under the influence of [id number] intravenous anesthetic agent with the attendance of the anesthesiologist, a single shock was delivered with anterior and posterior patches. Patient converted to sinus rhythm, remained hemodynamically stable and neurologically intact. This was a successful electrical cardioversion. He will be discharged later today and I will see him in the office in 1 week. MMODL / IJN: [id number] /
[2021-10-26 11:59] VITALS: BP 136/79; PULSE 62; RESP 16
== END 2021-10-26 10:21 | disposition home or self-care (01) ==
LOC: CATHCVL 06:33
PROVIDERS: ATTEND Internal Medicine Interventional Cardiology
DX: I48.0 Paroxysmal atrial fibrillation (principal); I10 Essential (primary) hypertension; E78.5 Hyperlipidemia, unspecified; H91.90 Unspecified hearing loss, unspecified ear; Z20.822 Contact with and (suspected) exposure to COVID-19; Z72.0 Tobacco use; Z95.5 Presence of coronary angioplasty implant and graft; I25.10 Atherosclerotic heart disease of native coronary artery without angina pectoris; Z79.01 Long term (current) use of anticoagulants; Z79.899 Other long term (current) drug therapy
CPT/HCPCS: 92960; 80048; 85610; 87635; J2001; J2704

== ENCOUNTER 2021-10-30 11:27 | Emergency (ER) | payer MEDICARE ==
[2021-10-30 12:13] VITALS: RESP 18; TEMP 97.3
[2021-10-30 12:43] LABS: Basophils # (A) 0.1 k/uL (0-0.2); Basophils % (A) 2 %; Eosinophils # (A) 0.1 k/uL (0-0.7); Eosinophils % (A) 2 %; HCT 43.9 % (39.0-53.0); HGB 14.6 gm/dL (13.0-17.5); Lymphocytes # (A) 0.7 k/uL (1.0-4.8); Lymphocytes % (A) 12 %; MCH 31.1 pg (25.0-35.0); MCHC 33.2 g/dL (31.0-37.0); MCV 93.8 fL (80.0-100.0); Mean Platelet Volume 7.1; Monocytes # (A) 0.5 k/uL (0-1.0); Monocytes % (A) 8 %; Neutrophils # (A) 4.9 k/uL (1.3-7.7); Neutrophils % (A) 76 %; Platelet Count 227 k/uL (150-450); RBC 4.68 m/uL (4.30-5.90); RDW 13.9 % (11.5-15.5); WBC 6.5 k/uL (3.8-10.6)
[2021-10-30] MEDS ORDERED: hydrALAZINE HCL 20 MG/ML 1 ML VIAL IVP STA (12:49)
--- NOTE | 2021-10-30 12:54 | ED ---
General Adult HPI - General Chief complaint: Recheck/Abnormal Lab/Rx Stated complaint: hypertension Time Seen by Provider: 10/30/21 12:10 Source: patient, family, RN notes reviewed, old records reviewed Mode of arrival: wheelchair Limitations: no limitations - History of Present Illness Initial comments: This is an 89-year-old male who presents emergency department stating that he had atrial fibrillation was cardioverted on Friday. Patient states he was sent home and they reduced his metoprolol as well as eliminated his hydralazine. Patient states this morning he had high blood pressure and a call the graphic production artist office they told to come to the emergency department. Patient states he had no chest pain or pressure he says he has a little tightness in his chest but he says that's typical of him having high blood pressure. Patient denied any shortness breath or difficulty breathing. Patient denied any diaphoretic episodes. Patient denies any nausea vomiting per patient denies any abdominal pain. Patient denies any lightheadedness dizziness or near syncopal episode. Patient denies any recent fever chills or cough. - Related Data Home Medications Medication Instructions Recorded Confirmed Atorvastatin [Lipitor] 20 mg PO DAILY 11/10/15 10/30/21 Metoprolol Tartrate [Lopressor] 50 mg PO TID 12/21/15 10/30/21 ALPRAZolam [Xanax] 0.25 - 0.5 mg PO DAILY PRN 07/23/19 10/30/21 Amiodarone [Cordarone] 200 mg PO BID 07/23/19 10/30/21 cloNIDine HCL [Catapres] 0.3 mg PO TID 07/23/19 10/30/21 hydroCHLOROthiazide [Hydrodiuril] 25 mg PO DAILY 07/23/19 10/30/21 Losartan Potassium 100 mg PO DAILY 10/25/21 10/30/21 Warfarin [Coumadin] 1.25 mg PO SUTUWETH 10/25/21 10/30/21 Warfarin [Coumadin] 2.5 mg PO MOFR 10/25/21 10/30/21 Finasteride [Proscar] 5 mg PO DAILY 10/30/21 10/30/21 hydrALAZINE HCL [Apresoline] 50 mg PO TID 10/30/21 10/30/21 Allergies Allergy/AdvReac Type Severity Reaction Status Date / Time No Known Allergies Allergy Verified 10/30/21 13:58 Review of Systems ROS Statement: Those systems with pertinent positive or pertinent negative responses have been documented in the HPI. ROS Other: All systems not noted in ROS Statement are negative. Past Medical History Past Medical History: Atrial Fibrillation, Coronary Artery Disease (CAD), Hyperlipidemia, Hypertension, Pulmonary Embolus (PE) Additional Past Medical History / Comment(s): 2011 PE, diverticulosis HAD PNEUMONIA IN AUG 2021, History of Any Multi-Drug Resistant Organisms: None Reported Past Surgical History: Heart Catheterization With Stent, Hernia Repair, Tonsillectomy Additional Past Surgical History / Comment(s): colonoscopy, cardioversion Past Anesthesia/Blood Transfusion Reactions: No Reported Reaction Additional Past Anesthesia/Blood Transfusion Reaction / Comment(s): Pt states he has never received blood Date of Last Stent Placement:: 03/06/12 Past Psychological History: Anxiety Smoking Status: Former smoker - Past Family History Mother Family Medical History: No Reported History Additional Family Medical History / Comment(s): Mother had pulmonary fibrosis. She at age 88yrs. Father Family Medical History: Myocardial Infarction ([place]) Additional Family Medical History / Comment(s): Father of a [place] in his 60's General Exam - General Exam Comments Initial Comments: GENERAL: Patient is well-developed and well-nourished. Patient is nontoxic and well- hydrated and is in no acute distress. ENT: Neck is soft and supple. No significant lymphadenopathy is noted. Oropharynx is clear. Moist mucous membranes. Neck has full range of motion without eliciting any pain. EYES: The sclera were anicteric and conjunctiva were pink and moist. Extraocular movements were intact and pupils were equal round and reactive to light. Eyelids were unremarkable. PULMONARY: Unlabored respirations. Good breath sounds bilaterally. No audible rales rhonchi or wheezing was noted. CARDIOVASCULAR: There is a regular rate and rhythm without any murmurs gallops or rubs. ABDOMEN: Soft and nontender with normal bowel sounds. SKIN: Skin is clear with no lesions or rashes and otherwise unremarkable. NEUROLOGIC: Patient is alert and oriented x3. Cranial nerves II through XII are grossly intact. Motor and sensory are also intact. Normal speech, volume and content. Symmetrical smile. MUSCULOSKELETAL: Normal extremities with adequate strength and full range of motion. LYMPHATICS: No significant lymphadenopathy is noted PSYCHIATRIC: Normal psychiatric evaluation. Limitations: no limitations Course Vital Signs 10/30/21 10/30/21 12:07 14:01 Temperature 97.3 F L Pulse Rate 69 57 L Respiratory 18 18 Rate Blood Pressure 201/103 152/86 O2 Sat by Pulse 96 96 Oximetry Medical Decision Making - Medical Decision Making EKG shows sinus rhythm at 64 bpm MN interval is 213 QRSs 122 QT interval 466 QTC is 475. Patient's EKG showed PVC there is no ST segment elevation or depression. No prior patient was given hydralazine emergency department. Blood pressure came down nicely. Patient was reevaluated and he had no complaints. I spoke with Dr. Lazo he wanted the patient go back on the hydralazine in the meantime until he follows up with cardiology. - Lab Data Result diagrams: 10/30/21 12:18 10/30/21 12:18 Lab Results 10/30/21 10/30/21 10/30/21 Range/Units 12:18 12:18 12:18 WBC 6.5 (3.8-10.6) k/uL RBC 4.68 (4.30-5.90) m/uL Hgb 14.6 (13.0-17.5) gm/dL Hct 43.9 (39.0-53.0) % MCV 93.8 (80.0-100.0) fL MCH 31.1 (25.0-35.0) pg MCHC 33.2 (31.0-37.0) g/dL RDW 13.9 (11.5-15.5) % Plt Count 227 (150-450) k/uL MPV 7.1 Neutrophils % 76 % Lymphocytes % 12 % Monocytes % 8 % Eosinophils % 2 % Basophils % 2 % Neutrophils # 4.9 (1.3-7.7) k/uL Lymphocytes # 0.7 L (1.0-4.8) k/uL Monocytes # 0.5 (0-1.0) k/uL Eosinophils # 0.1 (0-0.7) k/uL Basophils # 0.1 (0-0.2) k/uL PT 35.5 H (9.0-12.0) sec INR 3.6 H (<1.2) APTT 35.3 H (22.0-30.0) sec Sodium 137 (137-145) mmol/L Potassium 3.9 (3.5-5.1) mmol/L Chloride 102 (98-107) mmol/L Carbon Dioxide 25 (22-30) mmol/L Anion Gap 10 mmol/L BUN 22 H (9-20) mg/dL Creatinine 1.18 (0.66-1.25) mg/dL Est GFR (CKD-EPI)AfAm 63 (>60 ml/min/1.73 sqM) Est GFR (CKD-EPI)NonAf 55 (>60 ml/min/1.73 sqM) Glucose 132 H (74-99) mg/dL Calcium 9.6 (8.4-10.2) mg/dL Total Bilirubin 1.1 (0.2-1.3) mg/dL AST 32 (17-59) U/L ALT 29 (4-49) U/L Alkaline Phosphatase 55 (38-126) U/L Troponin I (0.000-0.034) ng/mL Total Protein 7.4 (6.3-8.2) g/dL Albumin 4.4 (3.5-5.0) g/dL 10/30/21 Range/Units 12:18 WBC (3.8-10.6) k/uL RBC (4.30-5.90) m/uL Hgb (13.0-17.5) gm/dL Hct (39.0-53.0) % MCV (80.0-100.0) fL MCH (25.0-35.0) pg MCHC (31.0-37.0) g/dL RDW (11.5-15.5) % Plt Count (150-450) k/uL MPV Neutrophils % % Lymphocytes % % Monocytes % % Eosinophils % % Basophils % % Neutrophils # (1.3-7.7) k/uL Lymphocytes # (1.0-4.8) k/uL Monocytes # (0-1.0) k/uL Eosinophils # (0-0.7) k/uL Basophils # (0-0.2) k/uL PT (9.0-12.0) sec INR (<1.2) APTT (22.0-30.0) sec Sodium (137-145) mmol/L Potassium (3.5-5.1) mmol/L Chloride (98-107) mmol/L Carbon Dioxide (22-30) mmol/L Anion Gap mmol/L BUN (9-20) mg/dL Creatinine (0.66-1.25) mg/dL Est GFR (CKD-EPI)AfAm (>60 ml/min/1.73 sqM) Est GFR (CKD-EPI)NonAf (>60 ml/min/1.73 sqM) Glucose (74-99) mg/dL Calcium (8.4-10.2) mg/dL Total Bilirubin (0.2-1.3) mg/dL AST (17-59) U/L ALT (4-49) U/L Alkaline Phosphatase (38-126) U/L Troponin I <0.012 (0.000-0.034) ng/mL Total Protein (6.3-8.2) g/dL Albumin (3.5-5.0) g/dL Disposition Clinical Impression: Hypertensive urgency Disposition: HOME SELF-CARE Condition: Good Instructions (If sedation given, give patient instructions): Hypertension (ED) Additional Instructions: Patient should again start taking his hydralazine. Is patient prescribed a controlled substance at d/c from ED?: No Referrals: iTti Nix III, MD [Primary Care Provider] - 1-2 days Time of Disposition: 14:06
[2021-10-30 12:56] LABS: Albumin 4.4 g/dL (3.5-5.0); Calcium 9.6 mg/dL (8.4-10.2); INR 3.6 (<1.2); Partial Thromboplastin Time 35.3 sec (22.0-30.0); Potassium 3.9 mmol/L (3.5-5.1); Prothrombin Time 35.5 sec (9.0-12.0); Total Bilirubin 1.1 mg/dL (0.2-1.3); Total Protein 7.4 g/dL (6.3-8.2)
[2021-10-30 14:39] VITALS: BP 151/89; PULSE 56
== END 2021-10-30 14:42 | disposition home or self-care (01) ==
LOC: EC 11:27
DX: I16.0 Hypertensive urgency (principal); I10 Essential (primary) hypertension; I48.91 Unspecified atrial fibrillation; I25.10 Atherosclerotic heart disease of native coronary artery without angina pectoris; E78.5 Hyperlipidemia, unspecified; F41.9 Anxiety disorder, unspecified; Z87.891 Personal history of nicotine dependence; Z79.01 Long term (current) use of anticoagulants; Z86.711 Personal history of pulmonary embolism; Z79.899 Other long term (current) drug therapy
CPT/HCPCS: 36415; 93005; 80053; 84484; 85025; 85610; 85730; 99283; 96374; J0360